=== PATIENT | male | born 1945 | race Two or more races ===

== ENCOUNTER 2018-06-17 10:32 | Inpatient (IN) | payer MEDICARE, OTHER ==
[~2018-06-17] VITALS: Ht 170.2 cm; Wt 72.6 kg
[2018-06-17] MEDS ORDERED: IBUPROFEN 600MG TABLET PO STA (11:23)
[2018-06-17] MEDS ORDERED: SODIUM CHLORIDE 0.9% 1,000 ML IV ONE (11:23)
[2018-06-17] MEDS ORDERED: BACITRACIN ZINC OINT UDPKT TOP ONE (11:30)
[2018-06-17] MEDS ORDERED: LIDOCAINE HCL/PF 1% 10 MG/ML 5ML VIAL IJ ONE (11:30)
[2018-06-17] MEDS ORDERED: TETANUS, DIPHTHERIA, PERTUSSIS VAC/PF 0.5ML (>7YR OLD) IM ONE (11:30)
[2018-06-17 13:09] LABS: INR 1.1; PROTHROMBIN TIME 11.5 sec (9.1-11.1)
[2018-06-17 13:12] LABS: CHLORIDE 102 mEq/L (98-107)
[2018-06-17 13:20] LABS: BASOPHILS % 0.4 % (0.0-2.0); EOSINOPHILS % 2.4 % (0.0-5.0); HEMATOCRIT. 45.8 % (42.0-52.0); HEMOGLOBIN. 15.9 g/dL (14.0-18.0); LYMPHOCYTES % 15.5 % (20.0-50.0); MEAN CORPUSCULAR HEMOGLOBIN 30.1 pg (28.0-32.0); MEAN PLATELET VOLUME 7.7 fl (7.4-10.4); MONOCYTES % 5.4 % (2.0-8.0); NEUTROPHILS % 76.3 % (40.0-76.0); PLATELET 173 x1000/uL (130-400); RED BLOOD CELL COUNT 5.27 mill/uL (4.7-6.1)
[2018-06-17] MEDS ORDERED: CEPHALEXIN 250MG CAPSULE PO ONE (14:00)
[2018-06-17] MEDS ORDERED: ACETAMINOPHEN 325MG TABLET PO PRN ×2 (15:00→15:30)
[2018-06-17] MEDS ORDERED: ONDANSETRON HCL 4MG/2ML INJ IV PRN (15:30)
[2018-06-17] MEDS ORDERED: CLONIDINE 0.1MG TABLET PO PRN (15:30)
[2018-06-17 16:34] LABS: CREATINE KINASE MB FRACTION 2.8 ng/mL (0.5-3.6)
[2018-06-17 20:19] LABS: CLARITY URINE CLEAR (CLEAR); COLOR URINE YELLOW (YELLOW); KETONES URINE NEGATIVE (NEGATIVE); LEUKOCYTE ESTERASE URINE NEGATIVE (NEGATIVE); NITRITE URINE NEGATIVE (NEGATIVE); OCCULT BLOOD URINE NEGATIVE (NEGATIVE); PH URINE 8.5 (4.5-8.0); PROTEIN URINE NEGATIVE (NEGATIVE); SPECIFIC GRAVITY URINE 1.009 (1.005-1.030); UROBILINOGEN URINE 0.2 E.U./dL (0.2-1.0)
[2018-06-17 20:36] LABS: *AMPHETAMINES SCREEN URINE NEGATIVE (NEGATIVE); *BARBITURATES SCREEN URINE NEGATIVE (NEGATIVE); *BENZODIAZEPINES SCREEN URINE NEGATIVE (NEGATIVE); *COCAINE SCREEN URINE NEGATIVE (NEGATIVE); CANNABINOID URINE SCREEN NEGATIVE (NEGATIVE); METHADONE URINE SCREEN NEGATIVE (NEGATIVE); OPIATES URINE SCREEN NEGATIVE (NEGATIVE); PHENCYCLIDINE URINE SCREEN NEGATIVE (NEGATIVE)
[2018-06-17 23:30] VITALS: BP 162/85
[2018-06-17 23:45] VITALS: BP 162/85
[2018-06-18 04:00] VITALS: BP 140/77
[2018-06-18 07:36] LABS: CHLORIDE 105 mEq/L (98-107)
[2018-06-18 07:50] LABS: BASOPHILS % 0.3 % (0.0-2.0); EOSINOPHILS % 1.8 % (0.0-5.0); HEMATOCRIT. 45.9 % (42.0-52.0); HEMOGLOBIN. 15.6 g/dL (14.0-18.0); LYMPHOCYTES % 19.7 % (20.0-50.0); MEAN CORPUSCULAR HEMOGLOBIN 29.5 pg (28.0-32.0); MEAN CORPUSCULAR VOLUME 87.1 fL (80.0-94.0); MEAN PLATELET VOLUME 7.6 fl (7.4-10.4); NEUTROPHILS % 72.2 % (40.0-76.0); PLATELET 172 x1000/uL (130-400); RED BLOOD CELL COUNT 5.27 mill/uL (4.7-6.1); RED CELL DISTRIBUTION WIDTH 13.1 % (11.6-14.6)
[2018-06-18 07:55] LABS: CREATINE KINASE 248 IU/L (39-308); CREATINE KINASE MB FRACTION 3.1 ng/mL (0.5-3.6); HDL CHOLESTEROL 31 mg/dL (40-59); LDL CHOLESTEROL 82 mg/dL (5-100)
[2018-06-18] MEDS: LOSARTAN POTASSIUM 25 MG TABLET PO SCH ×2 (09:06→17:00)
[2018-06-18] MEDS: AMLODIPINE 5MG TABLET PO SCH ×2 (09:06→20:50)
[2018-06-18] MEDS: HYDROCODONE/ACETAMINOPHEN 5/325MG TABLET PO PRN ×3 (09:07→20:50)
[2018-06-18 11:36] VITALS: BP_SYST 130; BP_SYST 154; BP_DIAS 74; BP_DIAS 89
[2018-06-18 12:00] VITALS: BP 118/72
[2018-06-18 16:00] VITALS: BP 129/67
[2018-06-18 20:00] VITALS: BP 142/78
[2018-06-19] VITALS (7 sets, daily range): BP systolic 95–149; BP diastolic 53–92
[2018-06-19] MEDS: HYDROCODONE/ACETAMINOPHEN 5/325MG TABLET PO PRN ×3 (05:00→18:21)
[2018-06-19 06:55] LABS: BASOPHILS % 0.5 % (0.0-2.0); EOSINOPHILS % 2.9 % (0.0-5.0); HEMOGLOBIN. 16.5 g/dL (14.0-18.0); MEAN CORPUSCULAR VOLUME 87.3 fL (80.0-94.0); MEAN PLATELET VOLUME 8.1 fl (7.4-10.4); MONOCYTES % 6.9 % (2.0-8.0); NEUTROPHILS % 68.7 % (40.0-76.0); PLATELET 188 x1000/uL (130-400); RED CELL DISTRIBUTION WIDTH 13.2 % (11.6-14.6)
[2018-06-19 07:17] LABS: CHLORIDE 105 mEq/L (98-107)
[2018-06-19] MEDS: LOSARTAN POTASSIUM 25 MG TABLET PO SCH ×2 (08:28→18:20)
[2018-06-19] MEDS: AMLODIPINE 5MG TABLET PO SCH ×2 (08:29→21:35)
[2018-06-19] MEDS: METOPROLOL TARTRATE 25MG TABLET PO SCH ×2 (11:29→21:35)
[2018-06-19] MEDS ORDERED: MECLIZINE 25MG TABLET PO PRN (15:00)
[2018-06-20] VITALS: BP 134/75
[2018-06-20 04:00] VITALS: BP 138/78
[2018-06-20 08:00] VITALS: BP_SYST 121; BP_SYST 126; BP_DIAS 76; BP_DIAS 78
[2018-06-20] MEDS: LOSARTAN POTASSIUM 25 MG TABLET PO SCH ×2 (08:55→17:01)
[2018-06-20] MEDS: METOPROLOL TARTRATE 25MG TABLET PO SCH ×2 (08:56→20:19)
[2018-06-20] MEDS: AMLODIPINE 5MG TABLET PO SCH ×2 (08:57→20:18)
[2018-06-20 12:00] VITALS: BP 133/72
[2018-06-20 16:00] VITALS: BP 152/90
[2018-06-20 20:00] VITALS: BP 148/92
[2018-06-20] MEDS: HYDROCODONE/ACETAMINOPHEN 5/325MG TABLET PO PRN (20:48)
[2018-06-21] VITALS (7 sets, daily range): BP systolic 80–148; BP diastolic 48–91
[2018-06-21] MEDS: LOSARTAN POTASSIUM 25 MG TABLET PO SCH ×2 (08:45→16:46)
[2018-06-21] MEDS: AMLODIPINE 5MG TABLET PO SCH ×2 (08:45→20:29)
[2018-06-21] MEDS: METOPROLOL TARTRATE 25MG TABLET PO SCH ×2 (08:45→20:29)
[2018-06-21] MEDS: HYDROCODONE/ACETAMINOPHEN 5/325MG TABLET PO PRN ×2 (13:06→22:25)
[2018-06-21] MEDS: ENOXAPARIN 40MG/0.4ML SYR SUBCUT SCH (14:29)
[2018-06-21] MEDS: LACTULOSE 20G/30ML UDC PO SCH ×3 (14:30→20:23)
[2018-06-21] MEDS: DOCUSATE SODIUM 100MG CAPSULE PO SCH (16:50)
[2018-06-21] MEDS: POLYETHYLENE GLYCOL 3350 (17GM) 1 DOSE PACK PO SCH (20:29)
[2018-06-22 04:00] VITALS: BP_SYST 104; BP_SYST 117; BP_SYST 127; BP_DIAS 65; BP_DIAS 66; BP_DIAS 70
[2018-06-22 07:44] VITALS: BP 136/76
[2018-06-22 08:00] VITALS: BP 136/76
[2018-06-22] MEDS: DOCUSATE SODIUM 100MG CAPSULE PO SCH ×2 (08:22→17:03)
[2018-06-22] MEDS: AMLODIPINE 5MG TABLET PO SCH ×2 (08:23→20:34)
[2018-06-22] MEDS: METOPROLOL TARTRATE 25MG TABLET PO SCH ×2 (08:23→20:34)
[2018-06-22] MEDS: LOSARTAN POTASSIUM 25 MG TABLET PO SCH ×2 (08:23→17:00)
[2018-06-22] MEDS: ENOXAPARIN 40MG/0.4ML SYR SUBCUT SCH (08:24)
[2018-06-22 12:09] LABS: CHLORIDE 107 mEq/L (98-107)
[2018-06-22 12:15] VITALS: BP_SYST 124; BP_SYST 134; BP_DIAS 64
[2018-06-22] MEDS: HYDROCODONE/ACETAMINOPHEN 5/325MG TABLET PO PRN ×2 (13:24→21:39)
[2018-06-22 17:35] VITALS: BP 106/77
[2018-06-22 20:00] VITALS: BP 119/59
[2018-06-22] MEDS: POLYETHYLENE GLYCOL 3350 (17GM) 1 DOSE PACK PO SCH (20:31)
[2018-06-23] VITALS: BP 120/58
[2018-06-23 04:00] VITALS: BP 133/78
[2018-06-23 06:15] LABS: BASOPHILS % 0.8 % (0.0-2.0); EOSINOPHILS % 9.1 % (0.0-5.0); HEMATOCRIT. 47.5 % (42.0-52.0); HEMOGLOBIN. 16.5 g/dL (14.0-18.0); LYMPHOCYTES % 31.3 % (20.0-50.0); MEAN CORPUSCULAR HEMOGLOBIN 30.4 pg (28.0-32.0); MEAN CORPUSCULAR VOLUME 87.7 fL (80.0-94.0); MEAN PLATELET VOLUME 8.2 fl (7.4-10.4); MONOCYTES % 6.9 % (2.0-8.0); NEUTROPHILS % 51.9 % (40.0-76.0); PLATELET 222 x1000/uL (130-400); RED BLOOD CELL COUNT 5.42 mill/uL (4.7-6.1)
[2018-06-23] MEDS ORDERED: HYDROCODONE/ACETAMINOPHEN 5/325MG TABLET PO PRN ×2 (06:15→18:30)
[2018-06-23 06:41] LABS: CHLORIDE 108 mEq/L (98-107)
[2018-06-23 08:00] VITALS: BP 129/73
[2018-06-23] MEDS: DOCUSATE SODIUM 100MG CAPSULE PO SCH ×2 (09:47→16:38)
[2018-06-23] MEDS: CALCITONIN,SALMON, 3.7 ML NASAL SPRAY ONENSTRL SCH (09:47)
[2018-06-23] MEDS: CALCIUM CARBONATE/VITAMIN D3 500MG TABLET PO SCH (09:48)
[2018-06-23] MEDS: LOSARTAN POTASSIUM 25 MG TABLET PO SCH ×2 (09:48→16:55)
[2018-06-23] MEDS: AMLODIPINE 5MG TABLET PO SCH ×2 (09:48→20:04)
[2018-06-23] MEDS: METOPROLOL TARTRATE 25MG TABLET PO SCH ×2 (09:48→20:04)
[2018-06-23] MEDS: ENOXAPARIN 40MG/0.4ML SYR SUBCUT SCH (09:49)
[2018-06-23] MEDS ORDERED: POTASSIUM CHLORIDE 20MEQ TABLET SR PO SCH (11:30)
[2018-06-23 12:56] VITALS: BP 136/77
[2018-06-23] MEDS: LACTULOSE 20G/30ML UDC PO SCH ×4 (13:00→20:11)
[2018-06-23] MEDS ORDERED: LACTULOSE 20G/30ML UDC PO SCH (13:00)
[2018-06-23] MEDS ORDERED: SODIUM CHLORIDE 0.9% 500 ML IV NR (16:05)
[2018-06-23 16:39] VITALS: BP 111/73
[2018-06-23] MEDS ORDERED: LORAZEPAM 2MG/ML CPJ IV NR (17:30)
[2018-06-23 20:00] VITALS: BP_SYST 113; BP_SYST 144; BP_SYST 98; BP_DIAS 68; BP_DIAS 77; BP_DIAS 78
[2018-06-23] MEDS: MORPHINE SULFATE 4 MG/ML CPJ (NOT FOR IM USE) IV PRN (20:04)
[2018-06-23] MEDS: POLYETHYLENE GLYCOL 3350 (17GM) 1 DOSE PACK PO SCH (20:11)
[2018-06-24] VITALS (7 sets, daily range): BP systolic 102–127; BP diastolic 47–71
[2018-06-24] MEDS: MORPHINE SULFATE 4 MG/ML CPJ (NOT FOR IM USE) IV PRN ×2 (06:20→19:26)
[2018-06-24 07:26] LABS: BASOPHILS % 0.9 % (0.0-2.0); EOSINOPHILS % 6.5 % (0.0-5.0); HEMATOCRIT. 47.7 % (42.0-52.0); HEMOGLOBIN. 16.1 g/dL (14.0-18.0); LYMPHOCYTES % 35.1 % (20.0-50.0); MEAN CORPUSCULAR HEMOGLOBIN 29.7 pg (28.0-32.0); MEAN PLATELET VOLUME 8.2 fl (7.4-10.4); MONOCYTES % 6.5 % (2.0-8.0); PLATELET 231 x1000/uL (130-400); RED BLOOD CELL COUNT 5.42 mill/uL (4.7-6.1); RED CELL DISTRIBUTION WIDTH 13.2 % (11.6-14.6)
[2018-06-24 08:01] LABS: CHLORIDE 107 mEq/L (98-107)
[2018-06-24] MEDS: CALCITONIN,SALMON, 3.7 ML NASAL SPRAY ONENSTRL SCH (08:31)
[2018-06-24] MEDS: CALCIUM CARBONATE/VITAMIN D3 500MG TABLET PO SCH (08:32)
[2018-06-24] MEDS: AMLODIPINE 5MG TABLET PO SCH (08:32)
[2018-06-24] MEDS: DOCUSATE SODIUM 100MG CAPSULE PO SCH ×2 (08:32→17:00)
[2018-06-24] MEDS: LOSARTAN POTASSIUM 25 MG TABLET PO SCH ×2 (08:32→17:00)
[2018-06-24] MEDS: METOPROLOL TARTRATE 25MG TABLET PO SCH ×2 (08:32→21:45)
[2018-06-24] MEDS: ENOXAPARIN 40MG/0.4ML SYR SUBCUT SCH (08:33)
[2018-06-24] MEDS ORDERED: HYDROCODONE/APAP 7.5/325MG 1 TAB TABLET PO PRN (10:45)
[2018-06-24] MEDS: AMLODIPINE 2.5MG TABLET PO SCH (21:44)
[2018-06-24] MEDS: POLYETHYLENE GLYCOL 3350 (17GM) 1 DOSE PACK PO SCH (21:45)
[2018-06-25] VITALS: BP 124/83
[2018-06-25 04:00] VITALS: BP 108/75
[2018-06-25 07:58] LABS: CHLORIDE 106 mEq/L (98-107)
[2018-06-25 08:12] LABS: BASOPHILS % 0.7 % (0.0-2.0); EOSINOPHILS % 8.2 % (0.0-5.0); HEMATOCRIT. 48.1 % (42.0-52.0); HEMOGLOBIN. 16.4 g/dL (14.0-18.0); LYMPHOCYTES % 30.5 % (20.0-50.0); MEAN CORPUSCULAR HEMOGLOBIN 29.9 pg (28.0-32.0); MEAN CORPUSCULAR VOLUME 87.7 fL (80.0-94.0); MEAN PLATELET VOLUME 8.5 fl (7.4-10.4); MONOCYTES % 7.4 % (2.0-8.0); NEUTROPHILS % 53.2 % (40.0-76.0); PLATELET 237 x1000/uL (130-400); RED BLOOD CELL COUNT 5.48 mill/uL (4.7-6.1); RED CELL DISTRIBUTION WIDTH 13.2 % (11.6-14.6)
[2018-06-25] MEDS: CALCITONIN,SALMON, 3.7 ML NASAL SPRAY ONENSTRL SCH (09:48)
[2018-06-25] MEDS: CALCIUM CARBONATE/VITAMIN D3 500MG TABLET PO SCH (09:49)
[2018-06-25] MEDS: LOSARTAN POTASSIUM 25 MG TABLET PO SCH (09:49)
[2018-06-25] MEDS: METOPROLOL TARTRATE 25MG TABLET PO SCH (09:50)
[2018-06-25] MEDS: DOCUSATE SODIUM 100MG CAPSULE PO SCH (09:50)
[2018-06-25] MEDS: ENOXAPARIN 40MG/0.4ML SYR SUBCUT SCH (09:51)
[2018-06-25] MEDS: AMLODIPINE 2.5MG TABLET PO SCH (09:56)
[2018-06-25 12:00] VITALS: BP 143/53
[2018-06-25 16:00] VITALS: BP 111/74
[2018-06-25 16:39] VITALS: BP 143/53
[2018-06-25] MEDS ORDERED: LORAZEPAM 0.5MG TABLET PO PRN (21:00)
== END 2018-06-25 17:05 | DRG 184 ==
LOC: ER 10:32 → 8WST 15:01 → EDBEDREQTM 15:05 → EDBEDREQ 15:05 → ENRESERV 22:05 → EDBEDREQ 23:17
PROVIDERS: ADMIT Internal Medicine; ATTEND Internal Medicine
PROC: 2W3HX1Z Immobilization of Left Thumb using Splint (ICD-10-PCS; principal; 2018-06-20)
DX: S22.42XA Multiple fractures of ribs, left side, initial encounter for closed fracture (principal); S22.039A Unspecified fracture of third thoracic vertebra, initial encounter for closed fracture; S22.059A Unspecified fracture of T5-T6 vertebra, initial encounter for closed fracture; J98.11 Atelectasis; M48.54XA Collapsed vertebra, not elsewhere classified, thoracic region, initial encounter for fracture; G90.8 Other disorders of autonomic nervous system; M47.812 Spondylosis without myelopathy or radiculopathy, cervical region; I10 Essential (primary) hypertension; M48.02 Spinal stenosis, cervical region; S09.90XA Unspecified injury of head, initial encounter; W18.30XA Fall on same level, unspecified, initial encounter; S62.522A Displaced fracture of distal phalanx of left thumb, initial encounter for closed fracture; I49.3 Ventricular premature depolarization; I95.1 Orthostatic hypotension; M46.90 Unspecified inflammatory spondylopathy, site unspecified; R79.1 Abnormal coagulation profile; Y93.01 Activity, walking, marching and hiking; W18.39XA Other fall on same level, initial encounter; R73.9 Hyperglycemia, unspecified; R26.9 Unspecified abnormalities of gait and mobility; M50.30 Other cervical disc degeneration, unspecified cervical region; Z82.49 Family history of ischemic heart disease and other diseases of the circulatory system; Y92.488 Other paved roadways as the place of occurrence of the external cause; Y99.8 Other external cause status
CPT/HCPCS: 12002; 36415; 70551; 71045; 72128; 72131; 72146; 73140; 74018; 78582; 80048; 80061; 80305; 82550; 82553; 82962; 83605; 83735; 83880; 84443; 84484; 85379; 90471; 90715; 93005; 93306; 93880; 93970; 96360; 97116; 97162; 97166; 97530; 97535; 99285; A9558; C1893; J1650; J2270; J3490; J7030; J7040; J8597

== ENCOUNTER 2018-06-25 17:10 | Inpatient (IN) | payer MEDICARE, OTHER ==
[~2018-06-25] VITALS: Ht 144.8 cm; Wt 72.6 kg
[2018-06-25] MEDS ORDERED: ONDANSETRON 4MG ODT PO PRN (18:45)
[2018-06-25] MEDS ORDERED: ACETAMINOPHEN 325MG TABLET PO PRN (18:45)
[2018-06-25] MEDS ORDERED: MECLIZINE 25MG TABLET PO PRN (18:45)
[2018-06-25] MEDS ORDERED: HYDROCODONE/APAP 7.5/325MG 1 TAB TABLET PO PRN (18:45)
[2018-06-25] MEDS ORDERED: CLONIDINE 0.1MG TABLET PO PRN (18:45)
[2018-06-25] MEDS ORDERED: MORPHINE SULFATE 10MG/5ML ORAL SOLN UDC PO PRN (18:45)
[2018-06-25 19:16] VITALS: BP 128/77
[2018-06-25 20:00] VITALS: BP 133/76
[2018-06-25] MEDS: METOPROLOL TARTRATE 25MG TABLET PO SCH (21:36)
[2018-06-25] MEDS: POLYETHYLENE GLYCOL 3350 (17GM) 1 DOSE PACK PO SCH (21:37)
[2018-06-25 22:00] VITALS: BP 130/74
[2018-06-26 06:47] LABS: BASOPHILS % 0.8 % (0.0-2.0); EOSINOPHILS % 8.9 % (0.0-5.0); HEMATOCRIT. 46.7 % (42.0-52.0); MEAN CORPUSCULAR HEMOGLOBIN 29.9 pg (28.0-32.0); MEAN CORPUSCULAR VOLUME 87.5 fL (80.0-94.0); MEAN PLATELET VOLUME 8.6 fl (7.4-10.4); MONOCYTES % 6.9 % (2.0-8.0); NEUTROPHILS % 46.4 % (40.0-76.0); PLATELET 251 x1000/uL (130-400); RED BLOOD CELL COUNT 5.33 mill/uL (4.7-6.1); RED CELL DISTRIBUTION WIDTH 12.9 % (11.6-14.6)
[2018-06-26 06:58] LABS: CHLORIDE 108 mEq/L (98-107)
[2018-06-26 08:00] VITALS: BP 115/73
[2018-06-26] MEDS ORDERED: HYDROCODONE/APAP 7.5/325MG 1 TAB TABLET PO PRN (08:30)
[2018-06-26] MEDS: CALCIUM CARBONATE/VITAMIN D3 500MG TABLET PO SCH (08:33)
[2018-06-26] MEDS: METOPROLOL TARTRATE 25MG TABLET PO SCH ×2 (08:34→21:25)
[2018-06-26] MEDS: DOCUSATE SODIUM 100MG CAPSULE PO SCH ×2 (08:34→17:19)
[2018-06-26] MEDS: LOSARTAN POTASSIUM 25 MG TABLET PO SCH ×2 (08:34→20:19)
[2018-06-26] MEDS: ENOXAPARIN 40MG/0.4ML SYR SUBCUT SCH (08:35)
[2018-06-26] MEDS: CALCITONIN,SALMON, 3.7 ML NASAL SPRAY ONENSTRL SCH (08:40)
[2018-06-26] MEDS: AMLODIPINE 5MG TABLET PO SCH ×2 (09:00→21:24)
[2018-06-26 13:08] LABS: HEPATITIS B SURFACE ANTIGEN NEGATIVE
[2018-06-26 13:37] LABS: HEPATITIS A AB IGM NEGATIVE (NEGATIVE)
[2018-06-26 20:00] VITALS: BP 144/69
[2018-06-26] MEDS: POLYETHYLENE GLYCOL 3350 (17GM) 1 DOSE PACK PO SCH (21:23)
[2018-06-26] MEDS: OXYCODONE HCL 5MG TABLET PO PRN (21:24)
[2018-06-27 06:46] LABS: BASOPHILS % 0.8 % (0.0-2.0); EOSINOPHILS % 8.2 % (0.0-5.0); HEMATOCRIT. 48.1 % (42.0-52.0); HEMOGLOBIN. 16.5 g/dL (14.0-18.0); LYMPHOCYTES % 37.7 % (20.0-50.0); MEAN CORPUSCULAR VOLUME 87.6 fL (80.0-94.0); MEAN PLATELET VOLUME 8.7 fl (7.4-10.4); MONOCYTES % 7.1 % (2.0-8.0); NEUTROPHILS % 46.2 % (40.0-76.0); PLATELET 263 x1000/uL (130-400); RED BLOOD CELL COUNT 5.49 mill/uL (4.7-6.1); RED CELL DISTRIBUTION WIDTH 13.2 % (11.6-14.6)
[2018-06-27] MEDS: OXYCODONE HCL 5MG TABLET PO PRN (06:53)
[2018-06-27 06:55] VITALS: BP_SYST 119; BP_SYST 126; BP_SYST 131; BP_DIAS 78; BP_DIAS 81
[2018-06-27 07:14] LABS: FERRITIN 382 ng/mL (22-322)
[2018-06-27 07:15] LABS: PROSTRATE SPECIFIC AG TOTAL 0.81 ng/mL (0.0-4.0)
[2018-06-27 07:19] LABS: CHLORIDE 105 mEq/L (98-107)
[2018-06-27 08:05] LABS: PHOSPHORUS 2.8 mg/dL (2.5-4.9)
[2018-06-27 08:12] VITALS: BP 120/72
[2018-06-27 08:14] VITALS: BP 91/63
[2018-06-27 08:15] VITALS: BP 100/67
[2018-06-27] MEDS: LOSARTAN POTASSIUM 25 MG TABLET PO SCH ×2 (08:59→21:29)
[2018-06-27] MEDS: ENOXAPARIN 40MG/0.4ML SYR SUBCUT SCH (08:59)
[2018-06-27] MEDS: AMLODIPINE 5MG TABLET PO SCH ×2 (08:59→21:29)
[2018-06-27] MEDS: CALCIUM CARBONATE/VITAMIN D3 500MG TABLET PO SCH (08:59)
[2018-06-27] MEDS: DOCUSATE SODIUM 100MG CAPSULE PO SCH ×2 (08:59→17:36)
[2018-06-27] MEDS: METOPROLOL TARTRATE 25MG TABLET PO SCH ×2 (08:59→21:29)
[2018-06-27] MEDS: CALCITONIN,SALMON, 3.7 ML NASAL SPRAY ONENSTRL SCH (09:12)
[2018-06-27] MEDS: MECLIZINE 25MG TABLET PO SCH ×2 (14:44→21:29)
[2018-06-27] MEDS ORDERED: LACTULOSE 20G/30ML UDC PO PRN (15:00)
[2018-06-27] MEDS ORDERED: NA PHOS,M-B/NA PHOS,DI-BA ENEMA 118ML PR PRN (15:00)
[2018-06-27] MEDS: LIDOCAINE 5% PATCH TOP SCH (16:20)
[2018-06-27 20:00] VITALS: BP 116/74
[2018-06-27] MEDS: POLYETHYLENE GLYCOL 3350 (17GM) 1 DOSE PACK PO SCH (21:00)
[2018-06-28] MEDS: MECLIZINE 25MG TABLET PO SCH ×3 (06:31→20:57)
[2018-06-28] MEDS: OXYCODONE HCL 5MG TABLET PO PRN ×2 (06:32→20:54)
[2018-06-28 07:30] VITALS: BP 112/70
[2018-06-28] MEDS: DOCUSATE SODIUM 100MG CAPSULE PO SCH ×2 (08:59→17:06)
[2018-06-28] MEDS: ENOXAPARIN 40MG/0.4ML SYR SUBCUT SCH (08:59)
[2018-06-28] MEDS: LOSARTAN POTASSIUM 25 MG TABLET PO SCH ×2 (09:00→20:55)
[2018-06-28] MEDS: AMLODIPINE 5MG TABLET PO SCH ×2 (09:00→20:55)
[2018-06-28] MEDS: CALCIUM CARBONATE/VITAMIN D3 500MG TABLET PO SCH (09:01)
[2018-06-28] MEDS: METOPROLOL TARTRATE 25MG TABLET PO SCH ×2 (09:03→20:55)
[2018-06-28] MEDS: CALCITONIN,SALMON, 3.7 ML NASAL SPRAY ONENSTRL SCH (09:05)
[2018-06-28] MEDS: LIDOCAINE 5% PATCH TOP SCH (09:06)
[2018-06-28 10:30] VITALS: BP 104/60
[2018-06-28 11:12] LABS: BASOPHILS % 1.1 % (0.0-2.0); HEMATOCRIT. 48.7 % (42.0-52.0); HEMOGLOBIN. 16.5 g/dL (14.0-18.0); LYMPHOCYTES % 25.4 % (20.0-50.0); MEAN CORPUSCULAR HEMOGLOBIN 29.7 pg (28.0-32.0); MEAN CORPUSCULAR VOLUME 87.9 fL (80.0-94.0); MEAN PLATELET VOLUME 8.4 fl (7.4-10.4); MONOCYTES % 9.3 % (2.0-8.0); NEUTROPHILS % 56.2 % (40.0-76.0); PLATELET 297 x1000/uL (130-400); RED BLOOD CELL COUNT 5.54 mill/uL (4.7-6.1); RED CELL DISTRIBUTION WIDTH 12.8 % (11.6-14.6)
[2018-06-28 20:00] VITALS: BP 113/68
[2018-06-28] MEDS: POLYETHYLENE GLYCOL 3350 (17GM) 1 DOSE PACK PO SCH (20:55)
[2018-06-28] MEDS ORDERED: ZOLPIDEM TARTRATE 5MG TABLET PO PRN (21:00)
[2018-06-29] MEDS: MECLIZINE 25MG TABLET PO SCH ×3 (06:15→21:20)
[2018-06-29 08:00] VITALS: BP 129/87
[2018-06-29] MEDS: ENOXAPARIN 40MG/0.4ML SYR SUBCUT SCH (08:18)
[2018-06-29] MEDS: DOCUSATE SODIUM 100MG CAPSULE PO SCH ×2 (08:18→17:23)
[2018-06-29] MEDS: CALCIUM CARBONATE/VITAMIN D3 500MG TABLET PO SCH (08:18)
[2018-06-29] MEDS: LOSARTAN POTASSIUM 25 MG TABLET PO SCH ×2 (08:18→21:00)
[2018-06-29] MEDS: LIDOCAINE 5% PATCH TOP SCH (08:19)
[2018-06-29] MEDS: AMLODIPINE 5MG TABLET PO SCH ×2 (09:00→21:00)
[2018-06-29] MEDS: METOPROLOL TARTRATE 25MG TABLET PO SCH ×2 (09:00→21:00)
[2018-06-29] MEDS: CALCITONIN,SALMON, 3.7 ML NASAL SPRAY ONENSTRL SCH (09:55)
[2018-06-29] MEDS: OXYCODONE HCL 5MG TABLET PO PRN (12:35)
[2018-06-29 20:00] VITALS: BP 118/64
[2018-06-29] MEDS: POLYETHYLENE GLYCOL 3350 (17GM) 1 DOSE PACK PO SCH (21:21)
[2018-06-30] MEDS: MECLIZINE 25MG TABLET PO SCH ×3 (06:16→21:08)
[2018-06-30] MEDS: OXYCODONE HCL 5MG TABLET PO PRN ×2 (06:39→21:11)
[2018-06-30 07:13] LABS: BASOPHILS % 0.8 % (0.0-2.0); EOSINOPHILS % 7.9 % (0.0-5.0); HEMATOCRIT. 48.1 % (42.0-52.0); HEMOGLOBIN. 16.5 g/dL (14.0-18.0); LYMPHOCYTES % 35.8 % (20.0-50.0); MEAN CORPUSCULAR HEMOGLOBIN 30.2 pg (28.0-32.0); MEAN CORPUSCULAR VOLUME 87.9 fL (80.0-94.0); MEAN PLATELET VOLUME 8.4 fl (7.4-10.4); MONOCYTES % 6.3 % (2.0-8.0); NEUTROPHILS % 49.2 % (40.0-76.0); PLATELET 299 x1000/uL (130-400); RED BLOOD CELL COUNT 5.47 mill/uL (4.7-6.1); RED CELL DISTRIBUTION WIDTH 13.3 % (11.6-14.6)
[2018-06-30 07:32] LABS: CHLORIDE 104 mEq/L (98-107)
[2018-06-30 08:00] VITALS: BP 131/72
[2018-06-30] MEDS: ENOXAPARIN 40MG/0.4ML SYR SUBCUT SCH (08:19)
[2018-06-30] MEDS: CALCITONIN,SALMON, 3.7 ML NASAL SPRAY ONENSTRL SCH (08:22)
[2018-06-30] MEDS: LIDOCAINE 5% PATCH TOP SCH (08:25)
[2018-06-30] MEDS: AMLODIPINE 5MG TABLET PO SCH ×2 (08:26→21:00)
[2018-06-30] MEDS: CALCIUM CARBONATE/VITAMIN D3 500MG TABLET PO SCH (08:26)
[2018-06-30] MEDS: METOPROLOL TARTRATE 25MG TABLET PO SCH ×2 (08:27→21:00)
[2018-06-30] MEDS: DOCUSATE SODIUM 100MG CAPSULE PO SCH ×2 (08:27→17:21)
[2018-06-30] MEDS: LOSARTAN POTASSIUM 25 MG TABLET PO SCH ×2 (09:00→21:00)
[2018-06-30 20:00] VITALS: BP_SYST 110; BP_SYST 125; BP_DIAS 69; BP_DIAS 70
[2018-06-30] MEDS: POLYETHYLENE GLYCOL 3350 (17GM) 1 DOSE PACK PO SCH (21:00)
[2018-06-30 22:08] LABS: VITAMIN B12 SERUM 420 pg/mL (211-911)
[2018-06-30 22:14] LABS: FOLIC ACID (FOLATE) SERUM > 20.00 ng/mL (>5.38)
[2018-07-01] MEDS: OXYCODONE HCL 5MG TABLET PO PRN ×2 (06:07→12:23)
[2018-07-01] MEDS: MECLIZINE 25MG TABLET PO SCH ×3 (06:08→20:59)
[2018-07-01 08:10] VITALS: BP 122/73
[2018-07-01] MEDS: CALCIUM CARBONATE/VITAMIN D3 500MG TABLET PO SCH (09:29)
[2018-07-01] MEDS: METOPROLOL TARTRATE 25MG TABLET PO SCH ×2 (09:29→20:58)
[2018-07-01] MEDS: DOCUSATE SODIUM 100MG CAPSULE PO SCH ×2 (09:29→18:02)
[2018-07-01] MEDS: AMLODIPINE 5MG TABLET PO SCH ×2 (09:29→20:59)
[2018-07-01] MEDS: LOSARTAN POTASSIUM 25 MG TABLET PO SCH ×2 (09:29→20:58)
[2018-07-01] MEDS: ENOXAPARIN 40MG/0.4ML SYR SUBCUT SCH (09:30)
[2018-07-01] MEDS: LIDOCAINE 5% PATCH TOP SCH (09:31)
[2018-07-01] MEDS: CALCITONIN,SALMON, 3.7 ML NASAL SPRAY ONENSTRL SCH (09:31)
[2018-07-01] MEDS ORDERED: TRAMADOL 50MG TABLET PO PRN (12:45)
[2018-07-01] MEDS: OXYCODONE HCL 5MG TABLET PO SCH ×2 (13:12→18:03)
[2018-07-01 20:00] VITALS: BP 104/56
[2018-07-01] MEDS: POLYETHYLENE GLYCOL 3350 (17GM) 1 DOSE PACK PO SCH (20:59)
[2018-07-01] MEDS ORDERED: OXYCODONE HCL 5MG TABLET PO PRN (21:45)
[2018-07-02] MEDS: MECLIZINE 25MG TABLET PO SCH ×3 (06:00→21:31)
[2018-07-02] MEDS: CYANOCOBALAMIN 1000MCG/ML VIAL IM SCH (08:17)
[2018-07-02] MEDS: CALCIUM CARBONATE/VITAMIN D3 500MG TABLET PO SCH (08:18)
[2018-07-02] MEDS: DOCUSATE SODIUM 100MG CAPSULE PO SCH ×2 (08:18→17:16)
[2018-07-02] MEDS: ENOXAPARIN 40MG/0.4ML SYR SUBCUT SCH (08:18)
[2018-07-02] MEDS: LIDOCAINE 5% PATCH TOP SCH (08:20)
[2018-07-02] MEDS: OXYCODONE HCL 5MG TABLET PO SCH ×3 (08:20→17:18)
[2018-07-02] MEDS: METOPROLOL TARTRATE 25MG TABLET PO SCH ×2 (08:21→21:00)
[2018-07-02 08:27] VITALS: BP 121/82
[2018-07-02 08:42] LABS: BASOPHILS % 0.9 % (0.0-2.0); HEMATOCRIT. 46.2 % (42.0-52.0); HEMOGLOBIN. 15.5 g/dL (14.0-18.0); LYMPHOCYTES % 30.1 % (20.0-50.0); MEAN CORPUSCULAR HEMOGLOBIN 29.6 pg (28.0-32.0); MEAN CORPUSCULAR VOLUME 87.9 fL (80.0-94.0); MONOCYTES % 6.1 % (2.0-8.0); NEUTROPHILS % 53.9 % (40.0-76.0); PLATELET 284 x1000/uL (130-400); RED BLOOD CELL COUNT 5.25 mill/uL (4.7-6.1); RED CELL DISTRIBUTION WIDTH 12.9 % (11.6-14.6)
[2018-07-02 09:50] VITALS: BP 105/58
[2018-07-02] MEDS: LOSARTAN POTASSIUM 25 MG TABLET PO SCH ×2 (09:50→21:30)
[2018-07-02] MEDS: AMLODIPINE 5MG TABLET PO SCH ×2 (09:50→21:00)
[2018-07-02] MEDS: CALCITONIN,SALMON, 3.7 ML NASAL SPRAY ONENSTRL SCH (10:06)
[2018-07-02 12:10] VITALS: BP 126/67
[2018-07-02 14:39] LABS: CHLORIDE 107 mEq/L (98-107)
[2018-07-02 14:46] LABS: PHOSPHORUS 3.2 mg/dL (2.5-4.9)
[2018-07-02 17:15] VITALS: BP 104/67
[2018-07-02 20:00] VITALS: BP 120/60
[2018-07-02] MEDS: POLYETHYLENE GLYCOL 3350 (17GM) 1 DOSE PACK PO SCH (21:00)
[2018-07-03] MEDS: MECLIZINE 25MG TABLET PO SCH ×3 (06:29→21:35)
[2018-07-03 08:00] VITALS: BP 130/77
[2018-07-03] MEDS: OXYCODONE HCL 5MG TABLET PO SCH ×3 (08:17→17:35)
[2018-07-03] MEDS: DOCUSATE SODIUM 100MG CAPSULE PO SCH ×2 (08:17→17:36)
[2018-07-03] MEDS: CALCIUM CARBONATE/VITAMIN D3 500MG TABLET PO SCH (08:17)
[2018-07-03] MEDS: CYANOCOBALAMIN 1000MCG/ML VIAL IM SCH (08:17)
[2018-07-03] MEDS: LIDOCAINE 5% PATCH TOP SCH (08:18)
[2018-07-03] MEDS: ENOXAPARIN 40MG/0.4ML SYR SUBCUT SCH (08:18)
[2018-07-03] MEDS: CALCITONIN,SALMON, 3.7 ML NASAL SPRAY ONENSTRL SCH (08:21)
[2018-07-03] MEDS: AMLODIPINE 5MG TABLET PO SCH ×2 (09:00→21:00)
[2018-07-03] MEDS: METOPROLOL TARTRATE 25MG TABLET PO SCH ×2 (09:00→21:37)
[2018-07-03] MEDS: LOSARTAN POTASSIUM 25 MG TABLET PO SCH ×2 (09:00→21:00)
[2018-07-03 20:00] VITALS: BP_SYST 101; BP_SYST 112; BP_SYST 121; BP_DIAS 74; BP_DIAS 77; BP_DIAS 82
[2018-07-03] MEDS: POLYETHYLENE GLYCOL 3350 (17GM) 1 DOSE PACK PO SCH (21:00)
[2018-07-04] MEDS: MECLIZINE 25MG TABLET PO SCH ×3 (06:18→21:42)
[2018-07-04] MEDS: TRAMADOL 50MG TABLET PO PRN (06:19)
[2018-07-04 07:14] LABS: BASOPHILS % 1.1 % (0.0-2.0); EOSINOPHILS % 6.8 % (0.0-5.0); HEMATOCRIT. 46.9 % (42.0-52.0); HEMOGLOBIN. 16.2 g/dL (14.0-18.0); LYMPHOCYTES % 41.5 % (20.0-50.0); MEAN CORPUSCULAR HEMOGLOBIN 30.1 pg (28.0-32.0); MEAN CORPUSCULAR VOLUME 87.4 fL (80.0-94.0); MEAN PLATELET VOLUME 8.6 fl (7.4-10.4); MONOCYTES % 6.7 % (2.0-8.0); NEUTROPHILS % 43.9 % (40.0-76.0); PLATELET 327 x1000/uL (130-400); RED BLOOD CELL COUNT 5.36 mill/uL (4.7-6.1)
[2018-07-04 07:42] LABS: CHLORIDE 104 mEq/L (98-107)
[2018-07-04 08:00] VITALS: BP_SYST 111; BP_SYST 115; BP_SYST 127; BP_DIAS 65; BP_DIAS 67; BP_DIAS 79
[2018-07-04] MEDS: DOCUSATE SODIUM 100MG CAPSULE PO SCH ×2 (08:54→16:35)
[2018-07-04] MEDS: ENOXAPARIN 40MG/0.4ML SYR SUBCUT SCH (08:54)
[2018-07-04] MEDS: CALCIUM CARBONATE/VITAMIN D3 500MG TABLET PO SCH (08:55)
[2018-07-04] MEDS: CYANOCOBALAMIN 1000MCG/ML VIAL IM SCH (08:55)
[2018-07-04] MEDS: METOPROLOL TARTRATE 25MG TABLET PO SCH ×2 (08:56→20:20)
[2018-07-04] MEDS: OXYCODONE HCL 5MG TABLET PO SCH ×3 (08:56→16:35)
[2018-07-04] MEDS: LOSARTAN POTASSIUM 25 MG TABLET PO SCH ×3 (08:56→21:00)
[2018-07-04] MEDS: AMLODIPINE 5MG TABLET PO SCH ×2 (09:00→20:21)
[2018-07-04] MEDS: LIDOCAINE 5% PATCH TOP SCH (09:02)
[2018-07-04] MEDS: CALCITONIN,SALMON, 3.7 ML NASAL SPRAY ONENSTRL SCH (09:02)
[2018-07-04 10:32] VITALS: BP 107/67
[2018-07-04 19:10] LABS: 25-HYDROXY VITAMIN D3 26 ng/mL (.)
[2018-07-04 20:00] VITALS: BP_SYST 85; BP_SYST 89; BP_SYST 97; BP_DIAS 47; BP_DIAS 53; BP_DIAS 54
[2018-07-04] MEDS: ZOLPIDEM TARTRATE 5MG TABLET PO PRN (20:20)
[2018-07-04] MEDS: POLYETHYLENE GLYCOL 3350 (17GM) 1 DOSE PACK PO SCH (20:21)
[2018-07-05] MEDS: MECLIZINE 25MG TABLET PO SCH ×3 (05:36→21:02)
[2018-07-05 07:50] LABS: BASOPHILS % 0.9 % (0.0-2.0); HEMATOCRIT. 46.5 % (42.0-52.0); HEMOGLOBIN. 15.7 g/dL (14.0-18.0); MEAN CORPUSCULAR HEMOGLOBIN 29.7 pg (28.0-32.0); MEAN CORPUSCULAR VOLUME 87.9 fL (80.0-94.0); MEAN PLATELET VOLUME 9.1 fl (7.4-10.4); MONOCYTES % 7.4 % (2.0-8.0); NEUTROPHILS % 43.7 % (40.0-76.0); PLATELET 323 x1000/uL (130-400); RED BLOOD CELL COUNT 5.29 mill/uL (4.7-6.1); RED CELL DISTRIBUTION WIDTH 13.2 % (11.6-14.6)
[2018-07-05 08:00] VITALS: BP 120/70
[2018-07-05] MEDS: CALCITONIN,SALMON, 3.7 ML NASAL SPRAY ONENSTRL SCH (08:06)
[2018-07-05] MEDS: CALCIUM CARBONATE/VITAMIN D3 500MG TABLET PO SCH (08:06)
[2018-07-05] MEDS: DOCUSATE SODIUM 100MG CAPSULE PO SCH ×2 (08:06→17:43)
[2018-07-05] MEDS: OXYCODONE HCL 5MG TABLET PO SCH ×3 (08:07→17:44)
[2018-07-05] MEDS: LIDOCAINE 5% PATCH TOP SCH (08:08)
[2018-07-05] MEDS: ENOXAPARIN 40MG/0.4ML SYR SUBCUT SCH (08:08)
[2018-07-05] MEDS: LOSARTAN POTASSIUM 25 MG TABLET PO SCH ×2 (09:00→20:53)
[2018-07-05] MEDS: METOPROLOL TARTRATE 25MG TABLET PO SCH ×2 (09:00→20:54)
[2018-07-05 11:13] LABS: CHLORIDE 105 mEq/L (98-107)
[2018-07-05 20:00] VITALS: BP 125/66
[2018-07-05] MEDS: POLYETHYLENE GLYCOL 3350 (17GM) 1 DOSE PACK PO SCH (20:00)
[2018-07-05] MEDS: ZOLPIDEM TARTRATE 5MG TABLET PO PRN (20:01)
[2018-07-06] MEDS: TRAMADOL 50MG TABLET PO PRN (04:35)
[2018-07-06] MEDS: MECLIZINE 25MG TABLET PO SCH (05:38)
[2018-07-06 06:30] VITALS: BP 112/74
[2018-07-06 07:19] LABS: EOSINOPHILS % 8.1 % (0.0-5.0); HEMATOCRIT. 44.8 % (42.0-52.0); HEMOGLOBIN. 15.3 g/dL (14.0-18.0); MEAN CORPUSCULAR HEMOGLOBIN 29.8 pg (28.0-32.0); MEAN CORPUSCULAR VOLUME 87.2 fL (80.0-94.0); MEAN PLATELET VOLUME 8.7 fl (7.4-10.4); MONOCYTES % 7.1 % (2.0-8.0); NEUTROPHILS % 43.8 % (40.0-76.0); PLATELET 296 x1000/uL (130-400); RED BLOOD CELL COUNT 5.13 mill/uL (4.7-6.1); RED CELL DISTRIBUTION WIDTH 12.9 % (11.6-14.6)
[2018-07-06 07:28] LABS: CHLORIDE 105 mEq/L (98-107)
[2018-07-06 08:28] VITALS: BP 126/82
[2018-07-06] MEDS: LOSARTAN POTASSIUM 25 MG TABLET PO SCH (09:00)
[2018-07-06] MEDS: METOPROLOL TARTRATE 25MG TABLET PO SCH (09:00)
[2018-07-06] MEDS: DOCUSATE SODIUM 100MG CAPSULE PO SCH (10:05)
[2018-07-06] MEDS: ENOXAPARIN 40MG/0.4ML SYR SUBCUT SCH (10:06)
[2018-07-06] MEDS: LIDOCAINE 5% PATCH TOP SCH (10:06)
[2018-07-06] MEDS: CALCIUM CARBONATE/VITAMIN D3 500MG TABLET PO SCH (10:07)
[2018-07-06] MEDS: CALCITONIN,SALMON, 3.7 ML NASAL SPRAY ONENSTRL SCH (10:10)
[2018-07-06] MEDS: OXYCODONE HCL 5MG TABLET PO SCH (10:13)
[2018-07-06 12:18] VITALS: BP 123/70
[2018-07-06] MEDS ORDERED: MECL-109 PO (16:09)
[2018-07-06] MEDS ORDERED: DOCU100T PO (16:09)
[2018-07-06] MEDS ORDERED: LOSA25TA12 MT (16:09)
== END 2018-07-06 13:09 | disposition short-term general hospital (02) | DRG 552 ==
PROVIDERS: ADMIT Physical Medicine & Rehabilitation Spinal Cord Injury Medicine; ATTEND Internal Medicine
DX: S22.039A Unspecified fracture of third thoracic vertebra, initial encounter for closed fracture (principal); S22.059A Unspecified fracture of T5-T6 vertebra, initial encounter for closed fracture; S62.522A Displaced fracture of distal phalanx of left thumb, initial encounter for closed fracture; W18.39XA Other fall on same level, initial encounter; M48.061 Spinal stenosis, lumbar region without neurogenic claudication; M48.02 Spinal stenosis, cervical region; R26.9 Unspecified abnormalities of gait and mobility; R53.81 Other malaise; I10 Essential (primary) hypertension; I95.1 Orthostatic hypotension; M47.812 Spondylosis without myelopathy or radiculopathy, cervical region; S09.90XA Unspecified injury of head, initial encounter; R73.9 Hyperglycemia, unspecified; R74.0 Nonspecific elevation of levels of transaminase and lactic acid dehydrogenase [LDH]; F06.31 Mood disorder due to known physiological condition with depressive features; M85.80 Other specified disorders of bone density and structure, unspecified site; Y93.89 Activity, other specified; Y92.89 Other specified places as the place of occurrence of the external cause; Y99.8 Other external cause status; Z82.1 Family history of blindness and visual loss
CPT/HCPCS: 36415; 73030; 76700; 80048; 80076; 82248; 82306; 82607; 82728; 82746; 83735; 84100; 84134; 84153; 84443; 84630; 86705; 86709; 86803; 87015; 87045; 87340; 87427; 87449; 89055; 92523; 93005; 93970; 97110; 97112; 97116; 97163; 97167; 97530; 97535; G0515; J1650; J3420; J8597; G0103

== ENCOUNTER 2018-07-06 13:37 | Inpatient (IN) | payer MEDICARE, OTHER ==
[~2018-07-06] VITALS: Ht 157.5 cm; Wt 74.8 kg
[2018-07-06 13:15] VITALS: BP 133/83
[2018-07-06 16:00] VITALS: BP 111/69
[2018-07-06] MEDS ORDERED: LOSA25TA12 MT (16:09)
[2018-07-06] MEDS ORDERED: MECL-109 PO (16:09)
[2018-07-06] MEDS ORDERED: DOCU100T PO (16:09)
[2018-07-06] MEDS ORDERED: GUAIFENESIN 200MG/10ML SUGAR FREE UDC PO PRN (16:15)
[2018-07-06] MEDS ORDERED: MAGNESIUM/ALUMINUM HYDROXIDE/SIMETHICONE 30ML UDC PO PRN (16:15)
[2018-07-06] MEDS ORDERED: ONDANSETRON HCL 4MG/2ML INJ IV PRN (16:15)
[2018-07-06] MEDS ORDERED: CLONIDINE 0.1MG TABLET PO PRN (16:15)
[2018-07-06] MEDS ORDERED: ACETAMINOPHEN 325MG TABLET PO PRN (16:15)
[2018-07-06] MEDS ORDERED: DOCUSATE SODIUM 100MG CAPSULE PO PRN (16:15)
[2018-07-06] MEDS ORDERED: OXYCODONE HCL 5MG TABLET PO PRN (16:30)
[2018-07-06] MEDS ORDERED: TRAMADOL 50MG TABLET PO PRN (16:30)
[2018-07-06] MEDS ORDERED: MECLIZINE 25MG TABLET PO PRN (16:30)
[2018-07-06] MEDS: DOCUSATE SODIUM 100MG CAPSULE PO SCH (18:46)
[2018-07-06] MEDS: SODIUM CHLORIDE 0.9% 1,000 ML IV SCH (18:46)
[2018-07-06 19:28] LABS: CREATINE KINASE 35 IU/L (39-308)
[2018-07-06 20:00] VITALS: BP 128/74
[2018-07-06] MEDS: CALCIUM CARBONATE/VITAMIN D3 500MG TABLET PO SCH (20:00)
[2018-07-06] MEDS: METOPROLOL TARTRATE 25MG TABLET PO SCH (21:00)
[2018-07-06] MEDS ORDERED: ZOLPIDEM TARTRATE 5MG TABLET PO PRN (21:00)
[2018-07-06] MEDS: IPRATROPIUM/ALBUTEROL 0.5-3(2.5)MG/3ML NEB INH PRN (23:13)
[2018-07-07] VITALS: BP 130/76
[2018-07-07 04:00] VITALS: BP 131/62
[2018-07-07] MEDS: IPRATROPIUM/ALBUTEROL 0.5-3(2.5)MG/3ML NEB INH PRN ×2 (05:16→08:50)
[2018-07-07 05:50] LABS: BASOPHILS % 1.2 % (0.0-2.0); EOSINOPHILS % 7.8 % (0.0-5.0); HEMATOCRIT. 45.1 % (42.0-52.0); HEMOGLOBIN. 15.6 g/dL (14.0-18.0); LYMPHOCYTES % 40.3 % (20.0-50.0); MEAN CORPUSCULAR HEMOGLOBIN 30.3 pg (28.0-32.0); MEAN CORPUSCULAR VOLUME 87.6 fL (80.0-94.0); MEAN PLATELET VOLUME 9.2 fl (7.4-10.4); MONOCYTES % 6.9 % (2.0-8.0); NEUTROPHILS % 43.8 % (40.0-76.0); PLATELET 266 x1000/uL (130-400); RED BLOOD CELL COUNT 5.15 mill/uL (4.7-6.1); RED CELL DISTRIBUTION WIDTH 13.1 % (11.6-14.6)
[2018-07-07 06:35] LABS: CHLORIDE 107 mEq/L (98-107)
[2018-07-07 06:55] LABS: LDL CHOLESTEROL 98 mg/dL (5-100)
[2018-07-07 06:57] LABS: CREATINE KINASE 36 IU/L (39-308)
[2018-07-07 06:58] LABS: HDL CHOLESTEROL 25 mg/dL (40-59); T4 FREE 1.22 ng/dL (0.76-1.46)
[2018-07-07] MEDS: SODIUM CHLORIDE 0.9% 1,000 ML IV SCH ×2 (07:17→20:41)
[2018-07-07 07:23] LABS: VITAMIN B12 SERUM 910 pg/mL (211-911)
[2018-07-07] MEDS: CALCIUM CARBONATE/VITAMIN D3 500MG TABLET PO SCH ×2 (07:54→17:46)
[2018-07-07] MEDS: METOPROLOL TARTRATE 25MG TABLET PO SCH ×2 (07:55→20:38)
[2018-07-07] MEDS: DOCUSATE SODIUM 100MG CAPSULE PO SCH ×2 (07:55→17:46)
[2018-07-07] MEDS: LOSARTAN POTASSIUM 50 MG TABLET PO SCH (07:55)
[2018-07-07] MEDS: POLYETHYLENE GLYCOL 3350 (17GM) 1 DOSE PACK PO SCH (07:55)
[2018-07-07 08:00] VITALS: BP 136/63
[2018-07-07] MEDS: NA PHOS,M-B/NA PHOS,DI-BA ENEMA 118ML PR SCH (09:00)
[2018-07-07] MEDS ORDERED: MECLIZINE 25MG TABLET PO PRN (10:30)
[2018-07-07 12:00] VITALS: BP 125/83
[2018-07-07 16:00] VITALS: BP 164/56
[2018-07-07 20:00] VITALS: BP 133/67
[2018-07-08] VITALS: BP 130/69
[2018-07-08 04:00] VITALS: BP 132/66
[2018-07-08 08:00] VITALS: BP 124/73
[2018-07-08 08:18] LABS: BASOPHILS % 0.7 % (0.0-2.0); EOSINOPHILS % 8.9 % (0.0-5.0); HEMATOCRIT. 44.5 % (42.0-52.0); HEMOGLOBIN. 15.3 g/dL (14.0-18.0); LYMPHOCYTES % 32.6 % (20.0-50.0); MEAN PLATELET VOLUME 9.2 fl (7.4-10.4); MONOCYTES % 7.2 % (2.0-8.0); NEUTROPHILS % 50.6 % (40.0-76.0); PLATELET 252 x1000/uL (130-400); RED BLOOD CELL COUNT 5.11 mill/uL (4.7-6.1); RED CELL DISTRIBUTION WIDTH 12.9 % (11.6-14.6)
[2018-07-08 08:43] LABS: CHLORIDE 105 mEq/L (98-107)
[2018-07-08 08:59] LABS: CREATINE KINASE MB FRACTION 1.3 ng/mL (0.5-3.6)
[2018-07-08 09:00] LABS: CREATINE KINASE 38 IU/L (39-308)
[2018-07-08] MEDS: NA PHOS,M-B/NA PHOS,DI-BA ENEMA 118ML PR SCH (09:00)
[2018-07-08 09:02] LABS: LDL CHOLESTEROL 99 mg/dL (5-100)
[2018-07-08 09:03] LABS: HDL CHOLESTEROL 27 mg/dL (40-59)
[2018-07-08] MEDS: SODIUM CHLORIDE 0.9% 1,000 ML IV SCH ×2 (10:00→23:20)
[2018-07-08] MEDS: DOCUSATE SODIUM 100MG CAPSULE PO SCH ×2 (10:34→17:39)
[2018-07-08] MEDS: CALCIUM CARBONATE/VITAMIN D3 500MG TABLET PO SCH ×2 (10:34→17:39)
[2018-07-08] MEDS: LOSARTAN POTASSIUM 50 MG TABLET PO SCH (10:35)
[2018-07-08] MEDS: POLYETHYLENE GLYCOL 3350 (17GM) 1 DOSE PACK PO SCH (10:36)
[2018-07-08] MEDS: METOPROLOL TARTRATE 25MG TABLET PO SCH ×2 (10:36→21:12)
[2018-07-08 12:00] VITALS: BP 160/73
[2018-07-08 16:00] VITALS: BP 172/60
[2018-07-08 20:00] VITALS: BP 143/77
[2018-07-08] MEDS: HYDROCODONE/ACETAMINOPHEN 5/325MG TABLET PO PRN (22:09)
[2018-07-09] VITALS (8 sets, daily range): BP systolic 97–130; BP diastolic 56–84
[2018-07-09] MEDS: CALCIUM CARBONATE/VITAMIN D3 500MG TABLET PO SCH ×2 (08:26→18:42)
[2018-07-09] MEDS: METOPROLOL TARTRATE 25MG TABLET PO SCH ×2 (08:26→21:00)
[2018-07-09] MEDS: LOSARTAN POTASSIUM 50 MG TABLET PO SCH (08:26)
[2018-07-09] MEDS: DOCUSATE SODIUM 100MG CAPSULE PO SCH ×2 (08:26→18:42)
[2018-07-09] MEDS: POLYETHYLENE GLYCOL 3350 (17GM) 1 DOSE PACK PO SCH (08:28)
[2018-07-09] MEDS: NA PHOS,M-B/NA PHOS,DI-BA ENEMA 118ML PR SCH (08:29)
[2018-07-09] MEDS: MIDODRINE HCL 2.5MG TABLET PO SCH ×3 (10:00→18:42)
[2018-07-09] MEDS: SODIUM CHLORIDE 0.9% 1,000 ML IV SCH (12:40)
[2018-07-09] MEDS: HYDROCODONE/ACETAMINOPHEN 5/325MG TABLET PO PRN (23:34)
[2018-07-10] VITALS: BP 123/81
[2018-07-10] MEDS: SODIUM CHLORIDE 0.9% 1,000 ML IV SCH ×2 (00:54→15:17)
[2018-07-10 04:00] VITALS: BP 135/68
[2018-07-10 06:54] LABS: BASOPHILS % 0.7 % (0.0-2.0); EOSINOPHILS % 9.6 % (0.0-5.0); HEMATOCRIT. 44.8 % (42.0-52.0); HEMOGLOBIN. 15.3 g/dL (14.0-18.0); LYMPHOCYTES % 36.6 % (20.0-50.0); MEAN CORPUSCULAR HEMOGLOBIN 29.8 pg (28.0-32.0); MEAN CORPUSCULAR VOLUME 87.3 fL (80.0-94.0); MEAN PLATELET VOLUME 8.6 fl (7.4-10.4); MONOCYTES % 6.6 % (2.0-8.0); NEUTROPHILS % 46.5 % (40.0-76.0); PLATELET 251 x1000/uL (130-400); RED BLOOD CELL COUNT 5.14 mill/uL (4.7-6.1); RED CELL DISTRIBUTION WIDTH 12.9 % (11.6-14.6)
[2018-07-10 07:23] LABS: CHLORIDE 109 mEq/L (98-107)
[2018-07-10] MEDS: CALCIUM CARBONATE/VITAMIN D3 500MG TABLET PO SCH (08:46)
[2018-07-10] MEDS: DOCUSATE SODIUM 100MG CAPSULE PO SCH (08:46)
[2018-07-10] MEDS: MIDODRINE HCL 2.5MG TABLET PO SCH ×2 (08:48→13:00)
[2018-07-10] MEDS: LOSARTAN POTASSIUM 50 MG TABLET PO SCH (08:48)
[2018-07-10] MEDS: METOPROLOL TARTRATE 25MG TABLET PO SCH (08:49)
[2018-07-10] MEDS: POLYETHYLENE GLYCOL 3350 (17GM) 1 DOSE PACK PO SCH (08:52)
[2018-07-10] MEDS: NA PHOS,M-B/NA PHOS,DI-BA ENEMA 118ML PR SCH (09:00)
[2018-07-10 12:00] VITALS: BP 113/67
[2018-07-10 15:34] VITALS: BP 120/62
[2018-07-10 16:00] VITALS: BP 121/68
== END 2018-07-10 16:32 | disposition home health service (06) | DRG 74 ==
LOC: 7WST 13:37
PROVIDERS: ADMIT Internal Medicine; ATTEND Internal Medicine
PROC: 2W3KX1Z Immobilization of Left Finger using Splint (ICD-10-PCS; principal; 2018-07-06)
DX: G90.8 Other disorders of autonomic nervous system (principal); S22.059A Unspecified fracture of T5-T6 vertebra, initial encounter for closed fracture; S22.039A Unspecified fracture of third thoracic vertebra, initial encounter for closed fracture; M48.02 Spinal stenosis, cervical region; I95.1 Orthostatic hypotension; S62.522A Displaced fracture of distal phalanx of left thumb, initial encounter for closed fracture; I27.20 Pulmonary hypertension, unspecified; S09.8XXA Other specified injuries of head, initial encounter; I12.9 Hypertensive chronic kidney disease with stage 1 through stage 4 chronic kidney disease, or unspecified chronic kidney disease; M47.9 Spondylosis, unspecified; M48.061 Spinal stenosis, lumbar region without neurogenic claudication; M85.80 Other specified disorders of bone density and structure, unspecified site; R74.0 Nonspecific elevation of levels of transaminase and lactic acid dehydrogenase [LDH]; R26.9 Unspecified abnormalities of gait and mobility; W18.39XA Other fall on same level, initial encounter; N18.9 Chronic kidney disease, unspecified; Y93.89 Activity, other specified; Y92.89 Other specified places as the place of occurrence of the external cause; Y99.8 Other external cause status; Z87.81 Personal history of (healed) traumatic fracture
CPT/HCPCS: 36415; 80048; 80061; 80076; 82533; 82550; 82553; 82607; 83735; 84439; 84443; 84481; 84484; 85379; 92523; 92610; 93005; 93970; 97116; 97162; 97166; 97530; 97535; J7030; J7620

== ENCOUNTER → 2018-07-26 | Outpatient (CLI) | payer MEDICARE, OTHER ==
[~2018-07-26] MED LIST: DOCU100T PO; LOSA25TA12 MT; MECL-109 PO
== END | disposition home or self-care (01) ==
LOC: RAD 08:53
PROVIDERS: ATTEND Internal Medicine
DX: S62.292D Other fracture of first metacarpal bone, left hand, subsequent encounter for fracture with routine healing (principal); X58.XXXD Exposure to other specified factors, subsequent encounter
CPT/HCPCS: 73120; 73140

== ENCOUNTER 2022-03-13 13:14 | Inpatient (IN) | payer MEDICARE, OTHER, MEDICAID ==
[~2022-03-13] VITALS: Ht 165.1 cm; Wt 67.6 kg
[~2022-03-13 13:14] MED LIST changes: -LOSA25TA12 MT; +LOSA25TA26 MT; -MECL-109 PO; +MECL-159 PO
[2022-03-13 15:16] LABS: HEMATOCRIT. 40.7 % (42.0-52.0); HEMOGLOBIN. 13.5 g/dL (14.0-18.0); MEAN CORPUSCULAR HEMOGLOBIN 28.9 pg (28.0-32.0); MEAN CORPUSCULAR VOLUME 87.1 fL (80.0-94.0); MEAN PLATELET VOLUME 8.9 fl (7.4-10.4); PLATELET 200 x1000/uL (130-400); RED BLOOD CELL COUNT 4.68 mill/uL (4.7-6.1); RED CELL DISTRIBUTION WIDTH 13.8 % (11.6-14.6)
[2022-03-13 15:22] LABS: CHLORIDE 101 mEq/L (98-107)
[2022-03-13 16:06] LABS: PLATELET ESTIMATE NORMAL
[2022-03-13] MEDS ORDERED: SODIUM CHLORIDE 0.9% 1,000 ML IV ONE (18:00)
[2022-03-13] MEDS ORDERED: POTASSIUM CHLORIDE 20MEQ/PACKET PO ONE (18:00)
[2022-03-13] MEDS ORDERED: AZITHROMYCIN 500 MG in DEXT 5% WATER 250 ML IV SCH (19:00)
[2022-03-13] MEDS ORDERED: CEFTRIAXONE 1 G PREMIX 50 ML IV ONE (19:00)
[2022-03-13 21:30] VITALS: BP 131/90
[2022-03-13 22:00] VITALS: BP 131/90
[2022-03-14] VITALS: BP 146/63
[2022-03-14] MEDS ORDERED: CLONIDINE 0.1MG TABLET PO PRN (01:30)
[2022-03-14] MEDS ORDERED: ATOR10TA69 PO (01:39)
[2022-03-14] MEDS ORDERED: METO-385 PO (01:39)
[2022-03-14 04:00] VITALS: BP 136/66
[2022-03-14 07:49] LABS: HEMATOCRIT 37.7 % (42.0-52.0); HEMOGLOBIN 12.4 g/dL (14.0-18.0); MEAN CORPUSCULAR HEMOGLOBIN 28.6 pg (28.0-32.0); PLATELET 194 x1000/uL (130-400); RED BLOOD CELL COUNT 4.34 mill/uL (4.7-6.1); RED CELL DISTRIBUTION WIDTH 13.7 % (11.6-14.6)
[2022-03-14 08:03] VITALS: BP 119/74
[2022-03-14 08:12] LABS: CHLORIDE 105 mEq/L (98-107)
[2022-03-14] MEDS: ATORVASTATIN CALCIUM 10MG TABLET PO SCH (08:34)
[2022-03-14] MEDS: MECLIZINE 25MG TABLET PO SCH ×2 (08:34→16:52)
[2022-03-14] MEDS: DOCUSATE SODIUM 100MG CAPSULE PO SCH (08:34)
[2022-03-14] MEDS: LOSARTAN POTASSIUM 25 MG TABLET PO SCH ×2 (08:34→16:52)
[2022-03-14] MEDS: METOPROLOL SUCCINATE 50MG ER TABLET PO SCH (08:35)
[2022-03-14] MEDS ORDERED: POTASSIUM CHLORIDE 20MEQ/PACKET PO NR (11:00)
[2022-03-14 12:30] VITALS: BP 133/83
[2022-03-14 16:00] VITALS: BP 141/88
[2022-03-14 20:00] VITALS: BP 135/68
[2022-03-15] VITALS: BP 112/73
[2022-03-15] MEDS: MECLIZINE 25MG TABLET PO SCH ×3 (00:41→18:12)
[2022-03-15 04:00] VITALS: BP 132/68
[2022-03-15 08:00] VITALS: BP 128/67
[2022-03-15] MEDS: METOPROLOL SUCCINATE 50MG ER TABLET PO SCH (10:15)
[2022-03-15] MEDS: ATORVASTATIN CALCIUM 10MG TABLET PO SCH (10:15)
[2022-03-15] MEDS: DOCUSATE SODIUM 100MG CAPSULE PO SCH (10:15)
[2022-03-15] MEDS: LOSARTAN POTASSIUM 25 MG TABLET PO SCH ×2 (10:15→18:12)
[2022-03-15 12:00] VITALS: BP 126/78
[2022-03-15] MEDS: CHLORDIAZEPOXIDE 25MG CAPSULE PO SCH ×2 (14:10→21:42)
[2022-03-15] MEDS ORDERED: SODIUM CHLORIDE 0.9% 1,000 ML IV SCH (15:30)
[2022-03-15 16:00] VITALS: BP 138/68
[2022-03-15] MEDS ORDERED: CEFTRIAXONE 1 G PREMIX 50 ML IV SCH (16:30)
[2022-03-15 16:46] LABS: CREATINE KINASE MB FRACTION 1.7 ng/mL (0.5-3.6)
[2022-03-15 16:48] LABS: BG BASE EXCESS 2.4 mmol/L (-2.0-2.0); BG CARBOXYHEMOGLOBIN 0.8 % (0.5-1.5); BG DEOXYHEMOGLOBIN 12.6 % (0.0-5.0); BG FRACTION INSPIRED OXYGEN 28; BG HCO3 ACT 24.2 mmol/L (22.0-26.0); BG METHEMOGLOBIN 0.3 % (0.0-1.5); BG OXYGEN SATURATION 87.3 % (92.0-98.5); BG OXYHEMOGLOBIN 86.3 % (94.0-97.0); BG PCO2 29.6 mmHg (35.0-45.0); BG PO2 46.9 mmHg (75.0-100.0); BG SAMPLE SITE RIGHT RADIAL; BG TOTAL HEMOGLOBIN 14.1 g/dL (12.0-18.0); BG VENT MODE NASAL CANNULA
[2022-03-15 17:03] LABS: BASOPHILS % 0.3 % (0.0-2.0); EOSINOPHILS % 0.2 % (0.0-5.0); HEMATOCRIT. 39.9 % (42.0-52.0); HEMOGLOBIN. 13.5 g/dL (14.0-18.0); LYMPHOCYTES % 7.4 % (20.0-50.0); MEAN CORPUSCULAR HEMOGLOBIN 29.2 pg (28.0-32.0); MEAN CORPUSCULAR VOLUME 86.2 fL (80.0-94.0); MEAN PLATELET VOLUME 9.2 fl (7.4-10.4); MONOCYTES % 2.9 % (2.0-8.0); NEUTROPHILS % 89.2 % (40.0-76.0); PLATELET 235 x1000/uL (130-400); RED BLOOD CELL COUNT 4.63 mill/uL (4.7-6.1); RED CELL DISTRIBUTION WIDTH 13.7 % (11.6-14.6)
[2022-03-15 17:05] LABS: CHLORIDE 109 mEq/L (98-107)
[2022-03-15] MEDS ORDERED: FUROSEMIDE 40MG/4ML VIAL IVP NR (17:15)
[2022-03-15 17:18] LABS: FOLIC ACID (FOLATE) SERUM 2.6 ng/mL (>5.38)
[2022-03-15] MEDS: IPRATROPIUM BROMIDE (0.02%) 0.5MG/2.5ML NEB HHN SCH ×2 (17:30→21:09)
[2022-03-15 18:08] LABS: HEPATITIS B SURFACE ANTIGEN NEGATIVE
[2022-03-15] MEDS: CEFTRIAXONE 1,000 MG in DEXTROSE 5% WATER 50 ML IV SCH (18:28)
[2022-03-15] MEDS: AZITHROMYCIN 500 MG in DEXT 5% WATER 250 ML IV SCH (19:16)
[2022-03-15 20:00] VITALS: BP 94/54
[2022-03-16] VITALS: BP 93/52
[2022-03-16] MEDS: MECLIZINE 25MG TABLET PO SCH ×3 (00:21→16:51)
[2022-03-16] MEDS: IPRATROPIUM BROMIDE (0.02%) 0.5MG/2.5ML NEB HHN SCH ×6 (01:30→20:07)
[2022-03-16 04:00] VITALS: BP 133/71
[2022-03-16] MEDS: CHLORDIAZEPOXIDE 25MG CAPSULE PO SCH ×3 (05:07→21:39)
[2022-03-16 06:58] LABS: BASOPHILS % 0.2 % (0.0-2.0); EOSINOPHILS % 0.4 % (0.0-5.0); HEMATOCRIT. 41.3 % (42.0-52.0); HEMOGLOBIN. 13.7 g/dL (14.0-18.0); LYMPHOCYTES % 25.5 % (20.0-50.0); MEAN CORPUSCULAR HEMOGLOBIN 29.4 pg (28.0-32.0); MEAN CORPUSCULAR VOLUME 88.4 fL (80.0-94.0); NEUTROPHILS % 69.9 % (40.0-76.0); PLATELET 253 x1000/uL (130-400); RED BLOOD CELL COUNT 4.67 mill/uL (4.7-6.1); RED CELL DISTRIBUTION WIDTH 13.9 % (11.6-14.6)
[2022-03-16 08:00] VITALS: BP 140/72
[2022-03-16] MEDS: FOLIC ACID 1MG TABLET PO SCH (09:00)
[2022-03-16] MEDS: METOPROLOL SUCCINATE 50MG ER TABLET PO SCH (09:00)
[2022-03-16] MEDS: DOCUSATE SODIUM 100MG CAPSULE PO SCH (09:00)
[2022-03-16] MEDS: LOSARTAN POTASSIUM 25 MG TABLET PO SCH ×2 (09:00→16:51)
[2022-03-16] MEDS: CYANOCOBALAMIN 1000MCG TABLET PO SCH (10:00)
[2022-03-16 12:00] VITALS: BP 135/76
[2022-03-16 16:00] VITALS: BP 132/75
[2022-03-16] MEDS ORDERED: POTASSIUM CHLORIDE 20MEQ TABLET SR PO NR (16:08)
[2022-03-16] MEDS: LACTULOSE 20G/30ML UDC PO SCH ×2 (16:50→21:39)
[2022-03-16] MEDS: CEFTRIAXONE 1,000 MG in DEXTROSE 5% WATER 50 ML IV SCH (16:50)
[2022-03-16] MEDS: AZITHROMYCIN 500 MG in DEXT 5% WATER 250 ML IV SCH (16:51)
[2022-03-16 20:00] VITALS: BP 141/72
[2022-03-16] MEDS: ATORVASTATIN CALCIUM 10MG TABLET PO SCH (21:39)
[2022-03-17] VITALS: BP 154/82
[2022-03-17] MEDS: IPRATROPIUM BROMIDE (0.02%) 0.5MG/2.5ML NEB HHN SCH ×5 (00:14→20:35)
[2022-03-17] MEDS: MECLIZINE 25MG TABLET PO SCH ×3 (01:48→18:21)
[2022-03-17 04:00] VITALS: BP 145/79
[2022-03-17] MEDS: LACTULOSE 20G/30ML UDC PO SCH ×3 (05:25→21:25)
[2022-03-17] MEDS: CHLORDIAZEPOXIDE 25MG CAPSULE PO SCH ×3 (05:25→21:25)
[2022-03-17 05:42] LABS: BASOPHILS % 0.4 % (0.0-2.0); EOSINOPHILS % 1.4 % (0.0-5.0); HEMATOCRIT. 39.4 % (42.0-52.0); HEMOGLOBIN. 13.1 g/dL (14.0-18.0); MEAN CORPUSCULAR HEMOGLOBIN 28.8 pg (28.0-32.0); MEAN CORPUSCULAR VOLUME 86.8 fL (80.0-94.0); MONOCYTES % 5.8 % (2.0-8.0); NEUTROPHILS % 74.4 % (40.0-76.0); PLATELET 228 x1000/uL (130-400); RED BLOOD CELL COUNT 4.54 mill/uL (4.7-6.1); RED CELL DISTRIBUTION WIDTH 14.1 % (11.6-14.6)
[2022-03-17 05:58] LABS: CHLORIDE 109 mEq/L (98-107)
[2022-03-17 06:13] LABS: CREATINE KINASE 68 IU/L (39-308); PHOSPHORUS 3.4 mg/dL (2.5-4.9)
[2022-03-17] MEDS: CYANOCOBALAMIN 1000MCG TABLET PO SCH (06:59)
[2022-03-17 08:00] VITALS: BP 146/81
[2022-03-17] MEDS ORDERED: POTASSIUM CHLORIDE 20MEQ TABLET SR PO NR (09:00)
[2022-03-17 12:00] VITALS: BP 135/74
[2022-03-17] MEDS: TAMSULOSIN HCL 0.4MG SR CAPSULE PO SCH (12:22)
[2022-03-17] MEDS: FOLIC ACID 1MG TABLET PO SCH (12:23)
[2022-03-17] MEDS: DOCUSATE SODIUM 100MG CAPSULE PO SCH (12:23)
[2022-03-17] MEDS: LOSARTAN POTASSIUM 25 MG TABLET PO SCH ×2 (12:23→18:20)
[2022-03-17] MEDS: METOPROLOL SUCCINATE 50MG ER TABLET PO SCH (12:24)
[2022-03-17 12:28] LABS: BG CARBOXYHEMOGLOBIN 0.3 % (0.5-1.5); BG DEOXYHEMOGLOBIN 5.5 % (0.0-5.0); BG FRACTION INSPIRED OXYGEN 32; BG HCO3 ACT 31.6 mmol/L (22.0-26.0); BG METHEMOGLOBIN 0.1 % (0.0-1.5); BG OXYGEN SATURATION 94.5 % (92.0-98.5); BG OXYHEMOGLOBIN 94.1 % (94.0-97.0); BG PCO2 45.1 mmHg (35.0-45.0); BG PH 7.464 (7.350-7.450); BG SAMPLE SITE RIGHT BRACHIAL; BG TOTAL HEMOGLOBIN 12.8 g/dL (12.0-18.0); BG VENT MODE NASAL CANNULA
[2022-03-17 16:00] VITALS: BP 140/80
[2022-03-17] MEDS: THIAMINE HCL 100MG TABLET PO SCH (18:21)
[2022-03-17] MEDS: CEFTRIAXONE 1,000 MG in DEXTROSE 5% WATER 50 ML IV SCH (18:21)
[2022-03-17] MEDS: AZITHROMYCIN 500 MG in DEXT 5% WATER 250 ML IV SCH (18:21)
[2022-03-17 19:40] LABS: CLARITY URINE CLEAR (CLEAR); COLOR URINE YELLOW (YELLOW); KETONES URINE TRACE (NEGATIVE); LEUKOCYTE ESTERASE URINE 3+ (NEGATIVE); NITRITE URINE NEGATIVE (NEGATIVE); OCCULT BLOOD URINE TRACE (NEGATIVE); PROTEIN URINE TRACE (NEGATIVE); SPECIFIC GRAVITY URINE 1.011 (1.005-1.030)
[2022-03-17 20:00] VITALS: BP 116/66
[2022-03-17] MEDS: ATORVASTATIN CALCIUM 10MG TABLET PO SCH (21:25)
[2022-03-18] VITALS: BP 135/68
[2022-03-18] MEDS: IPRATROPIUM BROMIDE (0.02%) 0.5MG/2.5ML NEB HHN SCH ×6 (00:16→20:45)
[2022-03-18] MEDS: MECLIZINE 25MG TABLET PO SCH ×2 (01:17→08:36)
[2022-03-18 04:00] VITALS: BP 127/68
[2022-03-18] MEDS: LACTULOSE 20G/30ML UDC PO SCH ×3 (06:00→21:06)
[2022-03-18] MEDS: CHLORDIAZEPOXIDE 25MG CAPSULE PO SCH (06:00)
[2022-03-18 07:20] LABS: CHLORIDE 108 mEq/L (98-107); PHOSPHORUS 3.3 mg/dL (2.5-4.9)
[2022-03-18 07:28] LABS: BASOPHILS % 0.3 % (0.0-2.0); HEMATOCRIT. 38.3 % (42.0-52.0); HEMOGLOBIN. 12.8 g/dL (14.0-18.0); LYMPHOCYTES % 10.8 % (20.0-50.0); MEAN CORPUSCULAR HEMOGLOBIN 29.4 pg (28.0-32.0); MEAN CORPUSCULAR VOLUME 88.2 fL (80.0-94.0); MEAN PLATELET VOLUME 9.2 fl (7.4-10.4); MONOCYTES % 5.5 % (2.0-8.0); NEUTROPHILS % 82.4 % (40.0-76.0); PLATELET 210 x1000/uL (130-400); RED BLOOD CELL COUNT 4.34 mill/uL (4.7-6.1); RED CELL DISTRIBUTION WIDTH 14.4 % (11.6-14.6)
[2022-03-18 08:00] VITALS: BP 115/67
[2022-03-18] MEDS: TAMSULOSIN HCL 0.4MG SR CAPSULE PO SCH (08:35)
[2022-03-18] MEDS: LOSARTAN POTASSIUM 25 MG TABLET PO SCH ×2 (08:36→17:18)
[2022-03-18] MEDS: FOLIC ACID 1MG TABLET PO SCH (08:36)
[2022-03-18] MEDS: THIAMINE HCL 100MG TABLET PO SCH (08:36)
[2022-03-18] MEDS: DOCUSATE SODIUM 100MG CAPSULE PO SCH (08:37)
[2022-03-18] MEDS: METOPROLOL SUCCINATE 50MG ER TABLET PO SCH ×2 (08:37→09:00)
[2022-03-18] MEDS: CYANOCOBALAMIN 1000MCG TABLET PO SCH (09:05)
[2022-03-18] MEDS ORDERED: POTASSIUM CHLORIDE INJ 40 MEQ in DEXT 5% WATER 250 ML IV ONE (09:15)
[2022-03-18] MEDS ORDERED: CYANOCOBALAMIN 1000MCG/ML VIAL IM SCH (10:00)
[2022-03-18] MEDS: KCL 20MEQ/100ML X 2 FOR TOTAL KCL 40MEQ/200ML IV SCH ×2 (10:40→15:46)
[2022-03-18] MEDS: SODIUM CHLORIDE 0.45% 1,000 ML IV SCH (10:40)
[2022-03-18] MEDS ORDERED: THIAMINE HCL 100 MG in SODIUM CHLORIDE 0.9% 49 ML IV SCH (11:00)
[2022-03-18 11:40] VITALS: BP 135/72
[2022-03-18 16:00] VITALS: BP 123/64
[2022-03-18] MEDS: CEFTRIAXONE 1,000 MG in DEXTROSE 5% WATER 50 ML IV SCH (17:18)
[2022-03-18] MEDS: AZITHROMYCIN 500 MG in DEXT 5% WATER 250 ML IV SCH (18:53)
[2022-03-18 20:00] VITALS: BP 116/65
[2022-03-18] MEDS: ATORVASTATIN CALCIUM 10MG TABLET PO SCH (21:09)
[2022-03-19] VITALS (7 sets, daily range): BP systolic 99–116; BP diastolic 45–68
[2022-03-19] MEDS: IPRATROPIUM BROMIDE (0.02%) 0.5MG/2.5ML NEB HHN SCH ×6 (00:50→20:07)
[2022-03-19] MEDS: LACTULOSE 20G/30ML UDC PO SCH (05:31)
[2022-03-19 06:57] LABS: BASOPHILS % 0.6 % (0.0-2.0); EOSINOPHILS % 3.2 % (0.0-5.0); HEMATOCRIT. 34.7 % (42.0-52.0); HEMOGLOBIN. 11.8 g/dL (14.0-18.0); LYMPHOCYTES % 16.9 % (20.0-50.0); MEAN CORPUSCULAR HEMOGLOBIN 29.5 pg (28.0-32.0); MEAN CORPUSCULAR VOLUME 86.6 fL (80.0-94.0); MEAN PLATELET VOLUME 9.7 fl (7.4-10.4); MONOCYTES % 7.1 % (2.0-8.0); NEUTROPHILS % 72.2 % (40.0-76.0); PLATELET 163 x1000/uL (130-400); RED CELL DISTRIBUTION WIDTH 14.2 % (11.6-14.6)
[2022-03-19 07:12] LABS: CHLORIDE 108 mEq/L (98-107)
[2022-03-19 07:18] LABS: PHOSPHORUS 2.7 mg/dL (2.5-4.9)
[2022-03-19 07:57] LABS: VITAMIN B12 SERUM > 2000.0 pg/mL (211-911)
[2022-03-19] MEDS: METOPROLOL SUCCINATE 50MG ER TABLET PO SCH (08:57)
[2022-03-19] MEDS: LOSARTAN POTASSIUM 25 MG TABLET PO SCH ×2 (09:21→17:00)
[2022-03-19] MEDS: CYANOCOBALAMIN 1000MCG TABLET PO SCH (09:21)
[2022-03-19] MEDS: TAMSULOSIN HCL 0.4MG SR CAPSULE PO SCH (09:21)
[2022-03-19] MEDS: DOCUSATE SODIUM 100MG CAPSULE PO SCH (09:21)
[2022-03-19] MEDS: THIAMINE HCL 100MG TABLET PO SCH (09:21)
[2022-03-19] MEDS: FOLIC ACID 1MG TABLET PO SCH (09:21)
[2022-03-19] MEDS ORDERED: POTASSIUM CHLORIDE 20MEQ TABLET SR PO NR ×2 (09:30→14:00)
[2022-03-19] MEDS: SODIUM CHLORIDE 0.45% 1,000 ML IV SCH (10:28)
[2022-03-19] MEDS: ACETAMINOPHEN 650MG/20.3ML UDC PO PRN ×2 (11:41→20:48)
[2022-03-19] MEDS ORDERED: ASPIRIN 81MG TABLET PO SCH (13:00)
[2022-03-19] MEDS: AZITHROMYCIN 500 MG in DEXT 5% WATER 250 ML IV SCH (17:13)
[2022-03-19] MEDS: CEFTRIAXONE 1,000 MG in DEXTROSE 5% WATER 50 ML IV SCH (17:13)
[2022-03-19] MEDS: ATORVASTATIN CALCIUM 10MG TABLET PO SCH (20:48)
== END 2022-03-19 23:15 | DRG 871 ==
LOC: ER 13:14 → 6WST 18:54 → ENRESERV 19:19
PROVIDERS: ADMIT Internal Medicine; ATTEND Internal Medicine
DX: A41.9 Sepsis, unspecified organism (principal); G92.8 Other toxic encephalopathy; J18.9 Pneumonia, unspecified organism; I50.33 Acute on chronic diastolic (congestive) heart failure; J96.01 Acute respiratory failure with hypoxia; E72.20 Disorder of urea cycle metabolism, unspecified; N17.9 Acute kidney failure, unspecified; F10.239 Alcohol dependence with withdrawal, unspecified; E87.3 Alkalosis; N13.30 Unspecified hydronephrosis; M54.41 Lumbago with sciatica, right side; Z20.822 Contact with and (suspected) exposure to COVID-19; E87.6 Hypokalemia; R29.6 Repeated falls; R74.01 Elevation of levels of liver transaminase levels; R26.9 Unspecified abnormalities of gait and mobility; R53.81 Other malaise; E80.6 Other disorders of bilirubin metabolism; R33.9 Retention of urine, unspecified; D64.9 Anemia, unspecified; I11.0 Hypertensive heart disease with heart failure; I07.1 Rheumatic tricuspid insufficiency; E53.8 Deficiency of other specified B group vitamins; K72.90 Hepatic failure, unspecified without coma; E87.5 Hyperkalemia; Z82.1 Family history of blindness and visual loss; Z82.49 Family history of ischemic heart disease and other diseases of the circulatory system; Z87.81 Personal history of (healed) traumatic fracture; Z86.73 Personal history of transient ischemic attack (TIA), and cerebral infarction without residual deficits
CPT/HCPCS: 36415; 36600; 70551; 71045; 71250; 76700; 78582; 80048; 80053; 80076; 81003; 82140; 82306; 82375; 82550; 82553; 82607; 82746; 82805; 83605; 83735; 83880; 84100; 84145; 84153; 84443; 84484; 85025; 85027; 85379; 86705; 86709; 86803; 87340; 87426; 93005; 93306; 93970; 94640; 97110; 97162; 97166; 97530; 97535; 99285; A9558; J0456; J0696; J1940; J3411; J3420; J3480; J7030; J7060; J8597; G0103

== ENCOUNTER 2022-03-19 23:20 | Inpatient (IN) | payer MEDICARE, OTHER, MEDICAID ==
[~2022-03-19] VITALS: Ht 165.1 cm; Wt 71.7 kg
[~2022-03-19 23:20] MED LIST changes: +ATOR10TA69 PO; +METO-385 PO
[2022-03-19 23:30] VITALS: BP 110/62
[2022-03-20 06:09] LABS: BASOPHILS % 0.6 % (0.0-2.0); EOSINOPHILS % 3.3 % (0.0-5.0); HEMATOCRIT. 35.8 % (42.0-52.0); HEMOGLOBIN. 11.9 g/dL (14.0-18.0); LYMPHOCYTES % 15.5 % (20.0-50.0); MEAN CORPUSCULAR VOLUME 86.8 fL (80.0-94.0); MEAN PLATELET VOLUME 9.6 fl (7.4-10.4); MONOCYTES % 5.8 % (2.0-8.0); NEUTROPHILS % 74.8 % (40.0-76.0); PLATELET 172 x1000/uL (130-400); RED BLOOD CELL COUNT 4.12 mill/uL (4.7-6.1); RED CELL DISTRIBUTION WIDTH 13.8 % (11.6-14.6)
[2022-03-20 06:37] LABS: CHLORIDE 106 mEq/L (98-107)
[2022-03-20 08:00] VITALS: BP 148/75
[2022-03-20] MEDS: MULTIVITAMINS,THER W-MINERALS TABLET PO SCH (11:48)
[2022-03-20] MEDS: TAMSULOSIN HCL 0.4MG SR CAPSULE PO SCH (11:50)
[2022-03-20] MEDS: FOLIC ACID 1MG TABLET PO SCH (11:50)
[2022-03-20] MEDS: THIAMINE HCL 100MG TABLET PO SCH (11:50)
[2022-03-20] MEDS: ASPIRIN 81MG TABLET PO SCH (11:50)
[2022-03-20] MEDS: LACTULOSE 20G/30ML UDC PO SCH ×2 (11:51→18:59)
[2022-03-20 12:00] VITALS: BP 140/76
[2022-03-20 16:00] VITALS: BP 138/88
[2022-03-20 20:00] VITALS: BP 121/73
[2022-03-20] MEDS: CEFTRIAXONE 1,000 MG in DEXTROSE 5% WATER 50 ML IV SCH (20:29)
[2022-03-20] MEDS: ATORVASTATIN CALCIUM 20MG TABLET PO SCH (20:29)
[2022-03-20] MEDS ORDERED: ENOXAPARIN 60MG/0.6ML SYR SUBCUT NR (20:30)
[2022-03-20 21:40] LABS: INR 1.2; PROTHROMBIN TIME 12.4 sec (9.6-11.0)
[2022-03-21] VITALS: BP 121/73
[2022-03-21 06:45] LABS: CHLORIDE 107 mEq/L (98-107)
[2022-03-21 06:57] LABS: TOTAL IRON BINDING CAPACITY 175 ug/dL (250-450)
[2022-03-21 07:26] LABS: BASOPHILS % 0.6 % (0.0-2.0); EOSINOPHILS % 3.4 % (0.0-5.0); HEMATOCRIT. 37.3 % (42.0-52.0); HEMOGLOBIN. 12.5 g/dL (14.0-18.0); LYMPHOCYTES % 21.3 % (20.0-50.0); MEAN CORPUSCULAR VOLUME 86.5 fL (80.0-94.0); MONOCYTES % 5.3 % (2.0-8.0); NEUTROPHILS % 69.4 % (40.0-76.0); PLATELET 199 x1000/uL (130-400); RED BLOOD CELL COUNT 4.32 mill/uL (4.7-6.1); RED CELL DISTRIBUTION WIDTH 13.8 % (11.6-14.6)
[2022-03-21 08:00] VITALS: BP 119/80
[2022-03-21] MEDS: ENOXAPARIN 60MG/0.6ML SYR SUBCUT SCH ×2 (08:51→21:32)
[2022-03-21] MEDS: ASPIRIN 81MG TABLET PO SCH (08:51)
[2022-03-21] MEDS: THIAMINE HCL 100MG TABLET PO SCH (08:51)
[2022-03-21] MEDS: TAMSULOSIN HCL 0.4MG SR CAPSULE PO SCH ×2 (08:52→19:02)
[2022-03-21] MEDS: LACTULOSE 20G/30ML UDC PO SCH ×2 (08:52→17:09)
[2022-03-21] MEDS: MULTIVITAMINS,THER W-MINERALS TABLET PO SCH (08:52)
[2022-03-21] MEDS: FOLIC ACID 1MG TABLET PO SCH (08:52)
[2022-03-21 10:50] LABS: CLARITY URINE CLEAR (CLEAR); COLOR URINE YELLOW (YELLOW); KETONES URINE NEGATIVE (NEGATIVE); LEUKOCYTE ESTERASE URINE NEGATIVE (NEGATIVE); NITRITE URINE NEGATIVE (NEGATIVE); OCCULT BLOOD URINE TRACE (NEGATIVE); PH URINE 6.5 (4.5-8.0); PROTEIN URINE TRACE (NEGATIVE); SPECIFIC GRAVITY URINE 1.011 (1.005-1.030); UROBILINOGEN URINE 0.2 E.U./dL (0.2-1.0)
[2022-03-21 12:00] VITALS: BP 117/73
[2022-03-21 16:00] VITALS: BP 125/71
[2022-03-21] MEDS: CEFTRIAXONE 1,000 MG in DEXTROSE 5% WATER 50 ML IV SCH (17:02)
[2022-03-21] MEDS: FERROUS SULFATE 325MG TABLET PO SCH (17:08)
[2022-03-21] MEDS: FINASTERIDE 5MG TABLET PO SCH (19:03)
[2022-03-21 20:00] VITALS: BP 108/63
[2022-03-21] MEDS: ATORVASTATIN CALCIUM 20MG TABLET PO SCH (21:31)
[2022-03-22 08:00] VITALS: BP 151/77
[2022-03-22] MEDS: FINASTERIDE 5MG TABLET PO SCH (09:04)
[2022-03-22] MEDS: FERROUS SULFATE 325MG TABLET PO SCH ×3 (09:04→17:13)
[2022-03-22] MEDS: ASCORBIC ACID 500 MG TABLET PO SCH (09:04)
[2022-03-22] MEDS: ASPIRIN 81MG TABLET PO SCH (09:04)
[2022-03-22] MEDS: FOLIC ACID 1MG TABLET PO SCH (09:04)
[2022-03-22] MEDS: MULTIVITAMINS,THER W-MINERALS TABLET PO SCH (09:04)
[2022-03-22] MEDS: THIAMINE HCL 100MG TABLET PO SCH (09:05)
[2022-03-22] MEDS: LACTULOSE 20G/30ML UDC PO SCH ×2 (09:06→17:13)
[2022-03-22] MEDS: TAMSULOSIN HCL 0.4MG SR CAPSULE PO SCH ×2 (09:06→17:17)
[2022-03-22] MEDS: ENOXAPARIN 60MG/0.6ML SYR SUBCUT SCH ×2 (09:07→21:19)
[2022-03-22] MEDS: METOPROLOL TARTRATE 25MG TABLET PO SCH ×2 (15:01→21:20)
[2022-03-22] MEDS: DEXT 5%/0.45% NACL 1000ML 1,000 ML IV SCH (15:06)
[2022-03-22] MEDS: CEFTRIAXONE 1,000 MG in DEXTROSE 5% WATER 50 ML IV SCH (17:46)
[2022-03-22 20:00] VITALS: BP 113/63
[2022-03-22] MEDS: ATORVASTATIN CALCIUM 20MG TABLET PO SCH (21:20)
[2022-03-23 08:00] VITALS: BP 141/68
[2022-03-23] MEDS: FOLIC ACID 1MG TABLET PO SCH (09:00)
[2022-03-23] MEDS: ASCORBIC ACID 500 MG TABLET PO SCH (09:00)
[2022-03-23] MEDS: TAMSULOSIN HCL 0.4MG SR CAPSULE PO SCH ×2 (09:00→16:53)
[2022-03-23] MEDS: ENOXAPARIN 60MG/0.6ML SYR SUBCUT SCH ×2 (09:00→22:04)
[2022-03-23] MEDS: FINASTERIDE 5MG TABLET PO SCH (09:00)
[2022-03-23] MEDS: ASPIRIN 81MG TABLET PO SCH (09:00)
[2022-03-23] MEDS: LACTULOSE 20G/30ML UDC PO SCH ×2 (09:00→16:45)
[2022-03-23] MEDS: THIAMINE HCL 100MG TABLET PO SCH (09:00)
[2022-03-23] MEDS: FERROUS SULFATE 325MG TABLET PO SCH ×3 (09:00→16:53)
[2022-03-23] MEDS: MULTIVITAMINS,THER W-MINERALS TABLET PO SCH (09:00)
[2022-03-23] MEDS: METOPROLOL TARTRATE 25MG TABLET PO SCH (09:00)
[2022-03-23] MEDS ORDERED: BARIUM SULFATE 176 GM SUSP.RECON ONE (10:19)
[2022-03-23] MEDS: IPRATROPIUM/ALBUTEROL 0.5-3(2.5)MG/3ML NEB HHN SCH ×2 (10:30→16:00)
[2022-03-23 12:13] LABS: BASOPHILS % 0.9 % (0.0-2.0); EOSINOPHILS % 2.7 % (0.0-5.0); HEMATOCRIT. 36.9 % (42.0-52.0); HEMOGLOBIN. 12.3 g/dL (14.0-18.0); MEAN CORPUSCULAR HEMOGLOBIN 29.1 pg (28.0-32.0); MEAN CORPUSCULAR VOLUME 87.3 fL (80.0-94.0); MEAN PLATELET VOLUME 10.6 fl (7.4-10.4); MONOCYTES % 6.5 % (2.0-8.0); NEUTROPHILS % 64.9 % (40.0-76.0); PLATELET 262 x1000/uL (130-400); RED BLOOD CELL COUNT 4.23 mill/uL (4.7-6.1); RED CELL DISTRIBUTION WIDTH 13.8 % (11.6-14.6)
[2022-03-23 12:45] LABS: CHLORIDE 104 mEq/L (98-107)
[2022-03-23] MEDS ORDERED: NALOXONE HCL 0.4MG/ML VIAL IV PRN (14:00)
[2022-03-23] MEDS ORDERED: ACETAMINOPHEN 325MG TABLET PO NR (14:00)
[2022-03-23] MEDS ORDERED: HYDROCODONE/ACETAMINOPHEN 5/325MG TABLET PO PRN (14:00)
[2022-03-23] MEDS: LIDOCAINE 5% PATCH TOP SCH (15:26)
[2022-03-23] MEDS: DILTIAZEM HCL 30MG TABLET PO SCH ×2 (15:27→17:50)
[2022-03-23] MEDS: DEXT 5%/0.45% NACL 1000ML 1,000 ML IV SCH (16:02)
[2022-03-23] MEDS: DICLOFENAC SODIUM 1% GEL 50GM TOP SCH ×2 (16:53→21:00)
[2022-03-23 19:39] VITALS: BP 94/61
[2022-03-23] MEDS: METOPROLOL TARTRATE 50MG TABLET PO SCH (20:34)
[2022-03-23] MEDS: ATORVASTATIN CALCIUM 20MG TABLET PO SCH (22:04)
[2022-03-24] MEDS: IPRATROPIUM/ALBUTEROL 0.5-3(2.5)MG/3ML NEB HHN SCH ×3 (02:15→21:02)
[2022-03-24] MEDS: ACETAMINOPHEN 325MG TABLET PO PRN (05:20)
[2022-03-24] MEDS: DILTIAZEM HCL 30MG TABLET PO SCH ×3 (05:59→18:00)
[2022-03-24 07:38] LABS: EOSINOPHILS % 3.2 % (0.0-5.0); HEMATOCRIT. 35.4 % (42.0-52.0); LYMPHOCYTES % 23.6 % (20.0-50.0); MEAN CORPUSCULAR HEMOGLOBIN 29.2 pg (28.0-32.0); MEAN CORPUSCULAR VOLUME 86.1 fL (80.0-94.0); MEAN PLATELET VOLUME 9.1 fl (7.4-10.4); NEUTROPHILS % 67.2 % (40.0-76.0); PLATELET 284 x1000/uL (130-400); RED BLOOD CELL COUNT 4.11 mill/uL (4.7-6.1); RED CELL DISTRIBUTION WIDTH 13.6 % (11.6-14.6)
[2022-03-24 07:50] LABS: CHLORIDE 104 mEq/L (98-107)
[2022-03-24 08:00] VITALS: BP 94/60
[2022-03-24] MEDS: LACTULOSE 20G/30ML UDC PO SCH ×2 (09:00→17:20)
[2022-03-24] MEDS: METOPROLOL TARTRATE 50MG TABLET PO SCH ×2 (09:00→21:00)
[2022-03-24] MEDS: DICLOFENAC SODIUM 1% GEL 50GM TOP SCH ×4 (09:12→21:15)
[2022-03-24] MEDS: ASPIRIN 81MG TABLET PO SCH (09:13)
[2022-03-24] MEDS: ENOXAPARIN 60MG/0.6ML SYR SUBCUT SCH ×2 (09:14→21:14)
[2022-03-24] MEDS: TAMSULOSIN HCL 0.4MG SR CAPSULE PO SCH ×2 (09:14→17:21)
[2022-03-24] MEDS: FOLIC ACID 1MG TABLET PO SCH (09:14)
[2022-03-24] MEDS: ASCORBIC ACID 500 MG TABLET PO SCH (09:15)
[2022-03-24] MEDS: FINASTERIDE 5MG TABLET PO SCH (09:15)
[2022-03-24] MEDS: THIAMINE HCL 100MG TABLET PO SCH (09:15)
[2022-03-24] MEDS: MULTIVITAMINS,THER W-MINERALS TABLET PO SCH (09:15)
[2022-03-24] MEDS: FERROUS SULFATE 325MG TABLET PO SCH ×3 (09:15→17:00)
[2022-03-24] MEDS: LIDOCAINE 5% PATCH TOP SCH (09:16)
[2022-03-24] MEDS: DEXT 5%/0.45% NACL 1000ML 1,000 ML IV SCH (12:00)
[2022-03-24 20:08] VITALS: BP 94/92
[2022-03-24] MEDS: ATORVASTATIN CALCIUM 20MG TABLET PO SCH (21:13)
[2022-03-25] MEDS: DILTIAZEM HCL 30MG TABLET PO SCH ×5 (00:37→23:15)
[2022-03-25] MEDS: ACETAMINOPHEN 325MG TABLET PO PRN ×3 (02:23→23:22)
[2022-03-25 08:00] VITALS: BP 110/56
[2022-03-25] MEDS: IPRATROPIUM/ALBUTEROL 0.5-3(2.5)MG/3ML NEB HHN SCH ×2 (09:00→22:04)
[2022-03-25] MEDS: DICLOFENAC SODIUM 1% GEL 50GM TOP SCH ×4 (09:00→21:35)
[2022-03-25] MEDS: LIDOCAINE 5% PATCH TOP SCH (09:00)
[2022-03-25] MEDS: LACTULOSE 20G/30ML UDC PO SCH ×2 (09:05→17:45)
[2022-03-25] MEDS: FOLIC ACID 1MG TABLET PO SCH (09:06)
[2022-03-25] MEDS: THIAMINE HCL 100MG TABLET PO SCH (09:06)
[2022-03-25] MEDS: FERROUS SULFATE 325MG TABLET PO SCH ×3 (09:06→17:45)
[2022-03-25] MEDS: FINASTERIDE 5MG TABLET PO SCH (09:06)
[2022-03-25] MEDS: ASCORBIC ACID 500 MG TABLET PO SCH (09:06)
[2022-03-25] MEDS: MULTIVITAMINS,THER W-MINERALS TABLET PO SCH (09:06)
[2022-03-25] MEDS: ASPIRIN 81MG TABLET PO SCH (09:06)
[2022-03-25] MEDS: TAMSULOSIN HCL 0.4MG SR CAPSULE PO SCH ×2 (09:06→17:50)
[2022-03-25] MEDS: ENOXAPARIN 60MG/0.6ML SYR SUBCUT SCH ×2 (09:07→21:03)
[2022-03-25] MEDS: METOPROLOL TARTRATE 50MG TABLET PO SCH ×2 (09:07→21:00)
[2022-03-25] MEDS ORDERED: LIDOCAINE 5% PATCH TOP SCH (13:00)
[2022-03-25 20:00] VITALS: BP 103/52
[2022-03-25] MEDS: ATORVASTATIN CALCIUM 20MG TABLET PO SCH (21:01)
[2022-03-26] MEDS: DILTIAZEM HCL 30MG TABLET PO SCH ×3 (05:50→17:20)
[2022-03-26] MEDS: IPRATROPIUM/ALBUTEROL 0.5-3(2.5)MG/3ML NEB HHN SCH ×2 (07:40→21:02)
[2022-03-26 08:00] VITALS: BP 116/56
[2022-03-26] MEDS: FERROUS SULFATE 325MG TABLET PO SCH ×3 (10:25→17:18)
[2022-03-26] MEDS: THIAMINE HCL 100MG TABLET PO SCH (10:25)
[2022-03-26] MEDS: MULTIVITAMINS,THER W-MINERALS TABLET PO SCH (10:25)
[2022-03-26] MEDS: ENOXAPARIN 60MG/0.6ML SYR SUBCUT SCH ×2 (10:26→21:13)
[2022-03-26] MEDS: ASPIRIN 81MG TABLET PO SCH (10:26)
[2022-03-26] MEDS: FOLIC ACID 1MG TABLET PO SCH (10:26)
[2022-03-26] MEDS: LACTULOSE 20G/30ML UDC PO SCH ×2 (10:26→17:18)
[2022-03-26] MEDS: METOPROLOL TARTRATE 50MG TABLET PO SCH ×2 (10:26→21:00)
[2022-03-26] MEDS: ASCORBIC ACID 500 MG TABLET PO SCH (10:26)
[2022-03-26] MEDS: TAMSULOSIN HCL 0.4MG SR CAPSULE PO SCH ×2 (10:26→17:18)
[2022-03-26] MEDS: LIDOCAINE 5% PATCH TOP SCH (10:27)
[2022-03-26] MEDS: DICLOFENAC SODIUM 1% GEL 50GM TOP SCH ×5 (10:28→21:12)
[2022-03-26] MEDS: FINASTERIDE 5MG TABLET PO SCH (10:28)
[2022-03-26] MEDS: DEXT 5%/0.45% NACL 1000ML 1,000 ML IV SCH (11:35)
[2022-03-26 19:06] LABS: 25-HYDROXY VITAMIN D3 17 ng/mL (.)
[2022-03-26 20:00] VITALS: BP 99/51
[2022-03-26] MEDS: ATORVASTATIN CALCIUM 20MG TABLET PO SCH (21:16)
[2022-03-27] MEDS: DEXT 5%/0.45% NACL 1000ML 1,000 ML IV SCH ×2 (01:18→21:14)
[2022-03-27] MEDS: DILTIAZEM HCL 30MG TABLET PO SCH ×4 (05:39→17:37)
[2022-03-27 06:20] LABS: BASOPHILS % 1.1 % (0.0-2.0); EOSINOPHILS % 4.3 % (0.0-5.0); HEMATOCRIT. 31.5 % (42.0-52.0); HEMOGLOBIN. 10.8 g/dL (14.0-18.0); LYMPHOCYTES % 32.9 % (20.0-50.0); MEAN CORPUSCULAR HEMOGLOBIN 29.5 pg (28.0-32.0); MEAN CORPUSCULAR VOLUME 86.3 fL (80.0-94.0); MEAN PLATELET VOLUME 8.5 fl (7.4-10.4); MONOCYTES % 5.3 % (2.0-8.0); NEUTROPHILS % 56.4 % (40.0-76.0); PLATELET 313 x1000/uL (130-400); RED BLOOD CELL COUNT 3.65 mill/uL (4.7-6.1); RED CELL DISTRIBUTION WIDTH 13.5 % (11.6-14.6)
[2022-03-27 06:38] LABS: CHLORIDE 109 mEq/L (98-107)
[2022-03-27 08:00] VITALS: BP 107/55
[2022-03-27] MEDS: DICLOFENAC SODIUM 1% GEL 50GM TOP SCH ×4 (09:00→21:17)
[2022-03-27] MEDS: ENOXAPARIN 60MG/0.6ML SYR SUBCUT SCH ×2 (10:17→21:17)
[2022-03-27] MEDS: MULTIVITAMINS,THER W-MINERALS TABLET PO SCH (10:17)
[2022-03-27] MEDS: FOLIC ACID 1MG TABLET PO SCH (10:18)
[2022-03-27] MEDS: FINASTERIDE 5MG TABLET PO SCH (10:18)
[2022-03-27] MEDS: THIAMINE HCL 100MG TABLET PO SCH (10:18)
[2022-03-27] MEDS: TAMSULOSIN HCL 0.4MG SR CAPSULE PO SCH ×2 (10:18→17:37)
[2022-03-27] MEDS: FERROUS SULFATE 325MG TABLET PO SCH ×3 (10:19→17:38)
[2022-03-27] MEDS: ASPIRIN 81MG TABLET PO SCH (10:19)
[2022-03-27] MEDS: METOPROLOL TARTRATE 50MG TABLET PO SCH ×2 (10:19→21:16)
[2022-03-27] MEDS: LACTULOSE 20G/30ML UDC PO SCH ×2 (10:19→17:37)
[2022-03-27] MEDS: ASCORBIC ACID 500 MG TABLET PO SCH (10:19)
[2022-03-27] MEDS: LIDOCAINE 5% PATCH TOP SCH (10:21)
[2022-03-27] MEDS ORDERED: POTASSIUM CHLORIDE 20MEQ/PACKET PO NR (14:00)
[2022-03-27] MEDS: ERGOCALCIFEROL 50000UNITS CAPSULE PO SCH (17:37)
[2022-03-27] MEDS: IPRATROPIUM/ALBUTEROL 0.5-3(2.5)MG/3ML NEB HHN SCH (19:50)
[2022-03-27 20:00] VITALS: BP 134/59
[2022-03-27] MEDS: ATORVASTATIN CALCIUM 20MG TABLET PO SCH (21:14)
[2022-03-28] MEDS: DEXT 5%/0.45% NACL 1000ML 1,000 ML IV SCH (03:35)
[2022-03-28] MEDS: DILTIAZEM HCL 30MG TABLET PO SCH ×4 (06:00→17:55)
[2022-03-28 08:00] VITALS: BP 126/77
[2022-03-28] MEDS: IPRATROPIUM/ALBUTEROL 0.5-3(2.5)MG/3ML NEB HHN SCH ×2 (08:07→20:04)
[2022-03-28] MEDS: LACTULOSE 20G/30ML UDC PO SCH ×2 (09:00→17:53)
[2022-03-28] MEDS: TAMSULOSIN HCL 0.4MG SR CAPSULE PO SCH ×2 (09:03→17:54)
[2022-03-28] MEDS: ASCORBIC ACID 500 MG TABLET PO SCH (09:04)
[2022-03-28] MEDS: FOLIC ACID 1MG TABLET PO SCH (09:04)
[2022-03-28] MEDS: ASPIRIN 81MG TABLET PO SCH (09:04)
[2022-03-28] MEDS: MULTIVITAMINS,THER W-MINERALS TABLET PO SCH (09:04)
[2022-03-28] MEDS: FERROUS SULFATE 325MG TABLET PO SCH ×3 (09:04→17:53)
[2022-03-28] MEDS: METOPROLOL TARTRATE 50MG TABLET PO SCH ×2 (09:04→21:03)
[2022-03-28] MEDS: THIAMINE HCL 100MG TABLET PO SCH (09:04)
[2022-03-28] MEDS: FINASTERIDE 5MG TABLET PO SCH (09:04)
[2022-03-28] MEDS: ENOXAPARIN 60MG/0.6ML SYR SUBCUT SCH ×2 (09:05→21:04)
[2022-03-28] MEDS: DICLOFENAC SODIUM 1% GEL 50GM TOP SCH ×4 (09:06→21:05)
[2022-03-28] MEDS: LIDOCAINE 5% PATCH TOP SCH (09:06)
[2022-03-28 20:00] VITALS: BP 119/66
[2022-03-28] MEDS: ATORVASTATIN CALCIUM 20MG TABLET PO SCH (21:03)
[2022-03-28] MEDS: ZOLPIDEM TARTRATE 5MG TABLET PO PRN (22:59)
[2022-03-29] MEDS: DILTIAZEM HCL 30MG TABLET PO SCH ×4 (00:09→18:12)
[2022-03-29] MEDS: IPRATROPIUM/ALBUTEROL 0.5-3(2.5)MG/3ML NEB HHN SCH ×2 (07:49→19:55)
[2022-03-29 08:00] VITALS: BP 107/56
[2022-03-29] MEDS ORDERED: FUROSEMIDE 20MG/2ML VIAL IVP NR (08:15)
[2022-03-29] MEDS: ASCORBIC ACID 500 MG TABLET PO SCH (08:57)
[2022-03-29] MEDS: FERROUS SULFATE 325MG TABLET PO SCH ×3 (08:57→18:13)
[2022-03-29] MEDS: FOLIC ACID 1MG TABLET PO SCH (08:57)
[2022-03-29] MEDS: MULTIVITAMINS,THER W-MINERALS TABLET PO SCH (08:58)
[2022-03-29] MEDS: TAMSULOSIN HCL 0.4MG SR CAPSULE PO SCH ×2 (08:58→18:13)
[2022-03-29] MEDS: ASPIRIN 81MG TABLET PO SCH (08:58)
[2022-03-29] MEDS: THIAMINE HCL 100MG TABLET PO SCH (08:58)
[2022-03-29] MEDS: ENOXAPARIN 60MG/0.6ML SYR SUBCUT SCH ×2 (08:59→21:16)
[2022-03-29] MEDS: LACTULOSE 20G/30ML UDC PO SCH ×4 (08:59→21:15)
[2022-03-29] MEDS: METOPROLOL TARTRATE 50MG TABLET PO SCH ×2 (08:59→21:00)
[2022-03-29] MEDS: DICLOFENAC SODIUM 1% GEL 50GM TOP SCH ×4 (09:00→21:17)
[2022-03-29] MEDS: LIDOCAINE 5% PATCH TOP SCH (09:01)
[2022-03-29] MEDS: FINASTERIDE 5MG TABLET PO SCH (09:05)
[2022-03-29 09:17] LABS: EOSINOPHILS % 3.4 % (0.0-5.0); HEMATOCRIT. 37.1 % (42.0-52.0); HEMOGLOBIN. 12.3 g/dL (14.0-18.0); LYMPHOCYTES % 38.8 % (20.0-50.0); MEAN CORPUSCULAR HEMOGLOBIN 29.1 pg (28.0-32.0); MEAN CORPUSCULAR VOLUME 87.7 fL (80.0-94.0); MEAN PLATELET VOLUME 8.2 fl (7.4-10.4); NEUTROPHILS % 52.8 % (40.0-76.0); PLATELET 326 x1000/uL (130-400); RED BLOOD CELL COUNT 4.23 mill/uL (4.7-6.1); RED CELL DISTRIBUTION WIDTH 13.9 % (11.6-14.6)
[2022-03-29 09:26] LABS: CHLORIDE 108 mEq/L (98-107)
[2022-03-29 20:00] VITALS: BP 104/56
[2022-03-29] MEDS: ATORVASTATIN CALCIUM 20MG TABLET PO SCH (21:15)
[2022-03-29] MEDS: ZOLPIDEM TARTRATE 5MG TABLET PO PRN (21:15)
[2022-03-30] MEDS: DILTIAZEM HCL 30MG TABLET PO SCH ×5 (06:00→23:40)
[2022-03-30 08:00] VITALS: BP 119/67
[2022-03-30] MEDS: DICLOFENAC SODIUM 1% GEL 50GM TOP SCH ×4 (09:00→21:26)
[2022-03-30] MEDS: LIDOCAINE 5% PATCH TOP SCH (09:00)
[2022-03-30] MEDS: IPRATROPIUM/ALBUTEROL 0.5-3(2.5)MG/3ML NEB HHN SCH ×2 (09:10→19:33)
[2022-03-30] MEDS: ACETAMINOPHEN 325MG TABLET PO PRN (09:54)
[2022-03-30] MEDS: ASPIRIN 81MG TABLET PO SCH (09:55)
[2022-03-30] MEDS: METOPROLOL TARTRATE 50MG TABLET PO SCH ×3 (09:55→21:25)
[2022-03-30] MEDS: FOLIC ACID 1MG TABLET PO SCH (09:55)
[2022-03-30] MEDS: THIAMINE HCL 100MG TABLET PO SCH (09:55)
[2022-03-30] MEDS: ASCORBIC ACID 500 MG TABLET PO SCH (09:55)
[2022-03-30] MEDS: TAMSULOSIN HCL 0.4MG SR CAPSULE PO SCH ×2 (09:55→18:06)
[2022-03-30] MEDS: FERROUS SULFATE 325MG TABLET PO SCH ×3 (09:55→18:05)
[2022-03-30] MEDS: MULTIVITAMINS,THER W-MINERALS TABLET PO SCH (09:56)
[2022-03-30] MEDS: LACTULOSE 20G/30ML UDC PO SCH ×4 (09:56→18:04)
[2022-03-30] MEDS: FINASTERIDE 5MG TABLET PO SCH (09:56)
[2022-03-30] MEDS: ENOXAPARIN 60MG/0.6ML SYR SUBCUT SCH ×2 (09:57→21:25)
[2022-03-30] MEDS ORDERED: DILTIAZEM HCL 30MG TABLET PO NR (10:30)
[2022-03-30] MEDS: SODIUM CHLORIDE 0.45% 1,000 ML IV SCH (13:23)
[2022-03-30 20:00] VITALS: BP 115/62
[2022-03-30] MEDS: ATORVASTATIN CALCIUM 20MG TABLET PO SCH (21:25)
[2022-03-31] MEDS: SODIUM CHLORIDE 0.45% 1,000 ML IV SCH ×2 (02:43→15:40)
[2022-03-31] MEDS: DILTIAZEM HCL 30MG TABLET PO SCH ×3 (05:18→17:31)
[2022-03-31] MEDS: METOPROLOL TARTRATE 50MG TABLET PO SCH ×3 (05:18→22:38)
[2022-03-31 06:50] LABS: EOSINOPHILS % 6.5 % (0.0-5.0); HEMATOCRIT. 35.5 % (42.0-52.0); LYMPHOCYTES % 35.8 % (20.0-50.0); MEAN CORPUSCULAR HEMOGLOBIN 29.8 pg (28.0-32.0); MEAN CORPUSCULAR VOLUME 87.8 fL (80.0-94.0); MEAN PLATELET VOLUME 8.2 fl (7.4-10.4); MONOCYTES % 6.5 % (2.0-8.0); NEUTROPHILS % 50.2 % (40.0-76.0); PLATELET 295 x1000/uL (130-400); RED BLOOD CELL COUNT 4.04 mill/uL (4.7-6.1); RED CELL DISTRIBUTION WIDTH 14.1 % (11.6-14.6)
[2022-03-31 06:53] LABS: CHLORIDE 106 mEq/L (98-107)
[2022-03-31] MEDS: IPRATROPIUM/ALBUTEROL 0.5-3(2.5)MG/3ML NEB HHN SCH ×2 (07:25→21:07)
[2022-03-31 08:00] VITALS: BP 107/59
[2022-03-31] MEDS: TAMSULOSIN HCL 0.4MG SR CAPSULE PO SCH ×2 (09:00→17:30)
[2022-03-31] MEDS: DICLOFENAC SODIUM 1% GEL 50GM TOP SCH ×4 (09:00→21:00)
[2022-03-31] MEDS: LACTULOSE 20G/30ML UDC PO SCH ×2 (09:00→17:00)
[2022-03-31] MEDS: LIDOCAINE 5% PATCH TOP SCH (09:00)
[2022-03-31] MEDS: ASPIRIN 81MG TABLET PO SCH (09:05)
[2022-03-31] MEDS: ASCORBIC ACID 500 MG TABLET PO SCH (09:05)
[2022-03-31] MEDS: MULTIVITAMINS,THER W-MINERALS TABLET PO SCH (09:05)
[2022-03-31] MEDS: FOLIC ACID 1MG TABLET PO SCH (09:05)
[2022-03-31] MEDS: FERROUS SULFATE 325MG TABLET PO SCH ×3 (09:05→17:30)
[2022-03-31] MEDS: FINASTERIDE 5MG TABLET PO SCH (09:07)
[2022-03-31] MEDS: THIAMINE HCL 100MG TABLET PO SCH (09:08)
[2022-03-31] MEDS: ENOXAPARIN 60MG/0.6ML SYR SUBCUT SCH ×2 (09:09→22:37)
[2022-03-31 20:00] VITALS: BP 105/57
[2022-03-31] MEDS: ATORVASTATIN CALCIUM 20MG TABLET PO SCH (22:36)
[2022-04-01] MEDS: DILTIAZEM HCL 30MG TABLET PO SCH ×4 (00:25→23:23)
[2022-04-01] MEDS: METOPROLOL TARTRATE 50MG TABLET PO SCH ×3 (06:54→21:03)
[2022-04-01 08:00] VITALS: BP_SYST 98; BP_DIAS 54; BP_DIAS 55
[2022-04-01] MEDS: DICLOFENAC SODIUM 1% GEL 50GM TOP SCH ×4 (09:00→21:03)
[2022-04-01] MEDS: ENOXAPARIN 60MG/0.6ML SYR SUBCUT SCH ×2 (10:24→21:02)
[2022-04-01] MEDS: MULTIVITAMINS,THER W-MINERALS TABLET PO SCH (10:24)
[2022-04-01] MEDS: ASCORBIC ACID 500 MG TABLET PO SCH (10:25)
[2022-04-01] MEDS: LACTULOSE 20G/30ML UDC PO SCH ×2 (10:25→17:00)
[2022-04-01] MEDS: TAMSULOSIN HCL 0.4MG SR CAPSULE PO SCH ×2 (10:25→17:45)
[2022-04-01] MEDS: ASPIRIN 81MG TABLET PO SCH (10:25)
[2022-04-01] MEDS: FERROUS SULFATE 325MG TABLET PO SCH ×3 (10:26→17:45)
[2022-04-01] MEDS: LIDOCAINE 5% PATCH TOP SCH (10:26)
[2022-04-01] MEDS: FOLIC ACID 1MG TABLET PO SCH (10:26)
[2022-04-01] MEDS: FINASTERIDE 5MG TABLET PO SCH (10:26)
[2022-04-01] MEDS: THIAMINE HCL 100MG TABLET PO SCH (10:26)
[2022-04-01] MEDS: IPRATROPIUM/ALBUTEROL 0.5-3(2.5)MG/3ML NEB HHN SCH ×2 (11:00→20:07)
[2022-04-01 20:00] VITALS: BP 116/56
[2022-04-01] MEDS: ATORVASTATIN CALCIUM 20MG TABLET PO SCH (21:03)
[2022-04-01] MEDS: ZOLPIDEM TARTRATE 5MG TABLET PO PRN (23:23)
[2022-04-02] MEDS: DILTIAZEM HCL 30MG TABLET PO SCH ×3 (05:26→18:14)
[2022-04-02] MEDS: METOPROLOL TARTRATE 50MG TABLET PO SCH ×3 (05:27→21:35)
[2022-04-02] MEDS: IPRATROPIUM/ALBUTEROL 0.5-3(2.5)MG/3ML NEB HHN SCH ×2 (07:20→20:06)
[2022-04-02] MEDS: SODIUM CHLORIDE 0.45% 1,000 ML IV SCH ×2 (07:40→20:36)
[2022-04-02 08:00] VITALS: BP 116/56
[2022-04-02] MEDS: FERROUS SULFATE 325MG TABLET PO SCH ×3 (09:00→18:13)
[2022-04-02] MEDS: DICLOFENAC SODIUM 1% GEL 50GM TOP SCH ×4 (09:00→20:36)
[2022-04-02] MEDS: LIDOCAINE 5% PATCH TOP SCH (09:00)
[2022-04-02] MEDS: THIAMINE HCL 100MG TABLET PO SCH (09:00)
[2022-04-02] MEDS: LACTULOSE 20G/30ML UDC PO SCH ×3 (09:00→18:05)
[2022-04-02] MEDS: ASCORBIC ACID 500 MG TABLET PO SCH (09:09)
[2022-04-02] MEDS: FOLIC ACID 1MG TABLET PO SCH (09:09)
[2022-04-02] MEDS: MULTIVITAMINS,THER W-MINERALS TABLET PO SCH (09:09)
[2022-04-02] MEDS: ASPIRIN 81MG TABLET PO SCH (09:09)
[2022-04-02] MEDS: FINASTERIDE 5MG TABLET PO SCH (09:09)
[2022-04-02] MEDS: TAMSULOSIN HCL 0.4MG SR CAPSULE PO SCH ×2 (09:11→18:12)
[2022-04-02 20:12] VITALS: BP 138/72
[2022-04-02] MEDS: ATORVASTATIN CALCIUM 20MG TABLET PO SCH (20:35)
[2022-04-02] MEDS: ENOXAPARIN 80MG/0.8ML SYR SUBCUT SCH (20:35)
[2022-04-03] MEDS: METOPROLOL TARTRATE 50MG TABLET PO SCH ×2 (06:00→13:41)
[2022-04-03] MEDS: DILTIAZEM HCL 30MG TABLET PO SCH ×4 (06:07→22:01)
[2022-04-03 08:00] VITALS: BP 130/61
[2022-04-03] MEDS: IPRATROPIUM/ALBUTEROL 0.5-3(2.5)MG/3ML NEB HHN SCH ×2 (08:41→21:53)
[2022-04-03] MEDS: MULTIVITAMINS,THER W-MINERALS TABLET PO SCH ×2 (09:00→09:09)
[2022-04-03] MEDS: LIDOCAINE 5% PATCH TOP SCH (09:00)
[2022-04-03] MEDS: TAMSULOSIN HCL 0.4MG SR CAPSULE PO SCH ×2 (09:00→09:09)
[2022-04-03] MEDS: ASPIRIN 81MG TABLET PO SCH ×2 (09:00→09:09)
[2022-04-03] MEDS: ENOXAPARIN 80MG/0.8ML SYR SUBCUT SCH ×2 (09:00→22:02)
[2022-04-03] MEDS: FOLIC ACID 1MG TABLET PO SCH ×2 (09:00→09:08)
[2022-04-03] MEDS: ERGOCALCIFEROL 50000UNITS CAPSULE PO SCH (09:00)
[2022-04-03] MEDS: THIAMINE HCL 100MG TABLET PO SCH ×2 (09:00→09:08)
[2022-04-03] MEDS: ASCORBIC ACID 500 MG TABLET PO SCH ×2 (09:00→09:08)
[2022-04-03] MEDS: DICLOFENAC SODIUM 1% GEL 50GM TOP SCH ×4 (09:00→21:00)
[2022-04-03] MEDS: FERROUS SULFATE 325MG TABLET PO SCH ×4 (09:00→16:35)
[2022-04-03] MEDS: FINASTERIDE 5MG TABLET PO SCH ×2 (09:00→09:09)
[2022-04-03] MEDS: SODIUM CHLORIDE 0.45% 1,000 ML IV SCH ×2 (10:20→23:40)
[2022-04-03] MEDS: LACTULOSE 20G/30ML UDC PO SCH (16:45)
[2022-04-03 17:02] LABS: BG BASE EXCESS 1.9 mmol/L (-2.0-2.0); BG CARBOXYHEMOGLOBIN 0.4 % (0.5-1.5); BG DEOXYHEMOGLOBIN 7.2 % (0.0-5.0); BG FRACTION INSPIRED OXYGEN 21; BG HCO3 ACT 25.4 mmol/L (22.0-26.0); BG METHEMOGLOBIN 0.1 % (0.0-1.5); BG OXYGEN SATURATION 92.8 % (92.0-98.5); BG OXYHEMOGLOBIN 92.3 % (94.0-97.0); BG PCO2 36.3 mmHg (35.0-45.0); BG PH 7.463 (7.350-7.450); BG PO2 65.9 mmHg (75.0-100.0); BG SAMPLE SITE RIGHT BRACHIAL; BG VENT MODE ROOM AIR
[2022-04-03 20:06] VITALS: BP 143/77
[2022-04-03] MEDS: ATORVASTATIN CALCIUM 20MG TABLET PO SCH (22:00)
[2022-04-03 22:30] VITALS: BP 126/72
[2022-04-04] MEDS: DILTIAZEM HCL 30MG TABLET PO SCH ×3 (06:00→20:47)
[2022-04-04 06:17] LABS: CHLORIDE 108 mEq/L (98-107)
[2022-04-04 06:21] LABS: BASOPHILS % 0.7 % (0.0-2.0); EOSINOPHILS % 6.3 % (0.0-5.0); HEMATOCRIT. 37.7 % (42.0-52.0); HEMOGLOBIN. 12.5 g/dL (14.0-18.0); LYMPHOCYTES % 41.6 % (20.0-50.0); MEAN CORPUSCULAR HEMOGLOBIN 29.3 pg (28.0-32.0); MEAN CORPUSCULAR VOLUME 88.2 fL (80.0-94.0); MEAN PLATELET VOLUME 8.6 fl (7.4-10.4); NEUTROPHILS % 44.4 % (40.0-76.0); PLATELET 287 x1000/uL (130-400); RED BLOOD CELL COUNT 4.27 mill/uL (4.7-6.1); RED CELL DISTRIBUTION WIDTH 14.2 % (11.6-14.6)
[2022-04-04 08:00] VITALS: BP 117/76
[2022-04-04] MEDS: DICLOFENAC SODIUM 1% GEL 50GM TOP SCH ×4 (09:00→20:45)
[2022-04-04] MEDS: FERROUS SULFATE 325MG TABLET PO SCH ×3 (09:00→18:24)
[2022-04-04] MEDS: LIDOCAINE 5% PATCH TOP SCH (09:00)
[2022-04-04] MEDS: FOLIC ACID 1MG TABLET PO SCH (09:16)
[2022-04-04] MEDS: ASPIRIN 81MG TABLET PO SCH (09:16)
[2022-04-04] MEDS: LACTULOSE 20G/30ML UDC PO SCH ×2 (09:16→18:24)
[2022-04-04] MEDS: THIAMINE HCL 100MG TABLET PO SCH (09:16)
[2022-04-04] MEDS: ASCORBIC ACID 500 MG TABLET PO SCH (09:16)
[2022-04-04] MEDS: MULTIVITAMINS,THER W-MINERALS TABLET PO SCH (09:16)
[2022-04-04] MEDS: ENOXAPARIN 80MG/0.8ML SYR SUBCUT SCH ×2 (09:23→20:48)
[2022-04-04] MEDS: IPRATROPIUM/ALBUTEROL 0.5-3(2.5)MG/3ML NEB HHN SCH ×2 (10:50→21:20)
[2022-04-04] MEDS: SODIUM CHLORIDE 0.45% 1,000 ML IV SCH (13:00)
[2022-04-04 19:59] VITALS: BP 134/66
[2022-04-04] MEDS: ATORVASTATIN CALCIUM 20MG TABLET PO SCH (20:46)
[2022-04-05] MEDS: SODIUM CHLORIDE 0.45% 1,000 ML IV SCH (02:20)
[2022-04-05] MEDS: DILTIAZEM HCL 30MG TABLET PO SCH (05:26)
[2022-04-05 08:00] VITALS: BP 120/60
[2022-04-05] MEDS: FOLIC ACID 1MG TABLET PO SCH (08:00)
[2022-04-05] MEDS: THIAMINE HCL 100MG TABLET PO SCH (08:00)
[2022-04-05] MEDS: ASPIRIN 81MG TABLET PO SCH (08:00)
[2022-04-05] MEDS: FERROUS SULFATE 325MG TABLET PO SCH (08:01)
[2022-04-05] MEDS: MULTIVITAMINS,THER W-MINERALS TABLET PO SCH (08:01)
[2022-04-05] MEDS: ASCORBIC ACID 500 MG TABLET PO SCH (08:01)
[2022-04-05] MEDS: IPRATROPIUM/ALBUTEROL 0.5-3(2.5)MG/3ML NEB HHN SCH (08:04)
[2022-04-05] MEDS ORDERED: DILT30TA38 PO (08:06)
[2022-04-05] MEDS ORDERED: LACT10SO7 PO (08:06)
[2022-04-05] MEDS ORDERED: FERR-63 PO (08:06)
[2022-04-05] MEDS ORDERED: FOLI-43 PO (08:06)
[2022-04-05] MEDS ORDERED: THIA100T72 PO (08:06)
[2022-04-05] MEDS ORDERED: ASPI-1160 PO (08:06)
[2022-04-05] MEDS ORDERED: ATOR20TA PO (08:06)
[2022-04-05] MEDS ORDERED: MULT-1146 MT (08:06)
[2022-04-05] MEDS: ENOXAPARIN 80MG/0.8ML SYR SUBCUT SCH (08:08)
[2022-04-05] MEDS: LIDOCAINE 5% PATCH TOP SCH (08:08)
[2022-04-05] MEDS: DICLOFENAC SODIUM 1% GEL 50GM TOP SCH (08:08)
[2022-04-05] MEDS: LACTULOSE 20G/30ML UDC PO SCH (09:00)
[2022-04-05 10:48] VITALS: BP 120/60
[2022-04-05] MEDS ORDERED: DILTIAZEM HCL 30MG TABLET PO SCH (12:00)
== END 2022-04-05 14:40 | disposition home health service (06) | DRG 91 ==
PROVIDERS: ADMIT Physical Medicine & Rehabilitation Spinal Cord Injury Medicine; ATTEND Internal Medicine
DX: G92.8 Other toxic encephalopathy (principal); A41.9 Sepsis, unspecified organism; J18.9 Pneumonia, unspecified organism; E43 Unspecified severe protein-calorie malnutrition; G82.50 Quadriplegia, unspecified; J96.01 Acute respiratory failure with hypoxia; F10.239 Alcohol dependence with withdrawal, unspecified; I82.432 Acute embolism and thrombosis of left popliteal vein; N17.9 Acute kidney failure, unspecified; R29.6 Repeated falls; E87.6 Hypokalemia; R53.81 Other malaise; E53.8 Deficiency of other specified B group vitamins; Y90.9 Presence of alcohol in blood, level not specified; K72.90 Hepatic failure, unspecified without coma; D64.9 Anemia, unspecified; E55.9 Vitamin D deficiency, unspecified; E61.1 Iron deficiency; E78.5 Hyperlipidemia, unspecified; E86.0 Dehydration; I08.1 Rheumatic disorders of both mitral and tricuspid valves; I10 Essential (primary) hypertension; I27.21 Secondary pulmonary arterial hypertension; I95.1 Orthostatic hypotension; M47.26 Other spondylosis with radiculopathy, lumbar region; M47.812 Spondylosis without myelopathy or radiculopathy, cervical region; M48.02 Spinal stenosis, cervical region; M48.061 Spinal stenosis, lumbar region without neurogenic claudication; M50.221 Other cervical disc displacement at C4-C5 level; M51.16 Intervertebral disc disorders with radiculopathy, lumbar region; N40.0 Benign prostatic hyperplasia without lower urinary tract symptoms; Z79.899 Other long term (current) drug therapy; Z82.1 Family history of blindness and visual loss; Z86.73 Personal history of transient ischemic attack (TIA), and cerebral infarction without residual deficits; Z91.81 History of falling; Z68.26 Body mass index [BMI] 26.0-26.9, adult
CPT/HCPCS: 36415; 36600; 70551; 71045; 72141; 72146; 72148; 73110; 73130; 74230; 80048; 80053; 81003; 82140; 82306; 82375; 82728; 82805; 82962; 83540; 83550; 84134; 84484; 85025; 85379; 92523; 92610; 92611; 93005; 93970; 94618; 94640; 97110; 97112; 97116; 97150; 97162; 97166; 97530; 97535; 97542; J0696; J1650; J1940; J7060

== ENCOUNTER 2022-05-13 14:20 | Inpatient (IN) | payer MEDICARE, OTHER, MEDICAID ==
[~2022-05-13] VITALS: Ht 165.1 cm; Wt 59.5 kg
[~2022-05-13 14:20] MED LIST changes: +ASPI-1160 PO; -ATOR10TA69 PO; +ATOR20TA PO; +DILT30TA38 PO; -DOCU100T PO; +FERR-63 PO; +FOLI-43 PO; +LACT10SO7 PO; -LOSA25TA26 MT; -MECL-159 PO; -METO-385 PO; +MULT-1146 MT; +THIA100T72 PO
[2022-05-13 16:56] LABS: BASOPHILS % 0.4 % (0.0-2.0); EOSINOPHILS % 0.1 % (0.0-5.0); HEMOGLOBIN. 14.8 g/dL (14.0-18.0); LYMPHOCYTES % 7.7 % (20.0-50.0); MEAN CORPUSCULAR HEMOGLOBIN 29.7 pg (28.0-32.0); MEAN CORPUSCULAR VOLUME 86.5 fL (80.0-94.0); MEAN PLATELET VOLUME 7.6 fl (7.4-10.4); MONOCYTES % 4.6 % (2.0-8.0); NEUTROPHILS % 87.2 % (40.0-76.0); PLATELET 235 x1000/uL (130-400); RED BLOOD CELL COUNT 4.97 mill/uL (4.7-6.1); RED CELL DISTRIBUTION WIDTH 14.5 % (11.6-14.6)
[2022-05-13 17:06] LABS: CHLORIDE 104 mEq/L (98-107)
[2022-05-13 17:07] LABS: INR 1.2; PROTHROMBIN TIME 12.7 sec (9.6-11.0)
[2022-05-13 17:13] LABS: ETHANOL BLOOD < 10 mg/dL
[2022-05-13 17:50] LABS: CLARITY URINE CLOUDY (CLEAR); COLOR URINE YELLOW (YELLOW); KETONES URINE NEGATIVE (NEGATIVE); LEUKOCYTE ESTERASE URINE 2+ (NEGATIVE); NITRITE URINE POSITIVE (NEGATIVE); OCCULT BLOOD URINE 3+ (NEGATIVE); PROTEIN URINE 1+ (NEGATIVE); SPECIFIC GRAVITY URINE 1.012 (1.005-1.030); UROBILINOGEN URINE 0.2 E.U./dL (0.2-1.0)
[2022-05-13 17:53] LABS: *AMPHETAMINES SCREEN URINE NEGATIVE (NEGATIVE); *BARBITURATES SCREEN URINE NEGATIVE (NEGATIVE); *BENZODIAZEPINES SCREEN URINE NEGATIVE (NEGATIVE); *COCAINE SCREEN URINE NEGATIVE (NEGATIVE); CANNABINOID URINE SCREEN NEGATIVE (NEGATIVE); METHADONE URINE SCREEN NEGATIVE (NEGATIVE); OPIATES URINE SCREEN NEGATIVE (NEGATIVE); PHENCYCLIDINE URINE SCREEN NEGATIVE (NEGATIVE)
[2022-05-13] MEDS ORDERED: CEFTRIAXONE 2 G PREMIX 50 ML IV ONE (18:45)
[2022-05-13] MEDS ORDERED: SODIUM CHLORIDE 0.9% 1,000 ML IV NR (18:45)
[2022-05-13] MEDS ORDERED: CEFTRIAXONE 2 G in DEXTROSE 5% WATER 50 ML IV NR (19:00)
[2022-05-14] VITALS (8 sets, daily range): BP systolic 102–128; BP diastolic 49–82
[2022-05-14] MEDS ORDERED: LORAZEPAM 2MG/ML CPJ IV PRN (01:00)
[2022-05-14 05:51] LABS: BASOPHILS % 0.1 % (0.0-2.0); EOSINOPHILS % 0.5 % (0.0-5.0); HEMATOCRIT. 42.3 % (42.0-52.0); HEMOGLOBIN. 14.1 g/dL (14.0-18.0); LYMPHOCYTES % 13.2 % (20.0-50.0); MEAN CORPUSCULAR HEMOGLOBIN 29.1 pg (28.0-32.0); MEAN CORPUSCULAR VOLUME 87.2 fL (80.0-94.0); MEAN PLATELET VOLUME 8.5 fl (7.4-10.4); MONOCYTES % 6.7 % (2.0-8.0); NEUTROPHILS % 79.5 % (40.0-76.0); PLATELET 203 x1000/uL (130-400); RED BLOOD CELL COUNT 4.85 mill/uL (4.7-6.1)
[2022-05-14 05:54] LABS: CHLORIDE 105 mEq/L (98-107)
[2022-05-14] MEDS ORDERED: ONDANSETRON HCL 4MG/2ML INJ IV PRN (10:30)
[2022-05-14] MEDS ORDERED: DOCUSATE SODIUM 100MG CAPSULE PO PRN (10:30)
[2022-05-14] MEDS ORDERED: IPRATROPIUM/ALBUTEROL 0.5-3(2.5)MG/3ML NEB HHN PRN (10:30)
[2022-05-14] MEDS ORDERED: CLONIDINE 0.1MG TABLET PO PRN (10:30)
[2022-05-14] MEDS ORDERED: ACETAMINOPHEN 325MG TABLET PO PRN ×2 (10:30)
[2022-05-14] MEDS: MULTIVITAMINS,THER W-MINERALS TABLET PO SCH (13:50)
[2022-05-14] MEDS: LACTULOSE 20G/30ML UDC PO SCH ×2 (13:50→17:00)
[2022-05-14] MEDS: THIAMINE HCL 100MG TABLET PO SCH (13:50)
[2022-05-14] MEDS: FOLIC ACID 1MG TABLET PO SCH (13:50)
[2022-05-14] MEDS: ASPIRIN 81MG TABLET PO SCH (13:50)
[2022-05-14] MEDS: FINASTERIDE 5MG TABLET PO SCH (13:51)
[2022-05-14] MEDS: FERROUS SULFATE 325MG TABLET PO SCH ×2 (13:52→18:22)
[2022-05-14] MEDS: DILTIAZEM HCL 30MG TABLET PO SCH ×2 (13:52→22:00)
[2022-05-14] MEDS: CEFTRIAXONE 1,000 MG in DEXTROSE 5% WATER 50 ML IV SCH (22:38)
[2022-05-14] MEDS: ATORVASTATIN CALCIUM 20MG TABLET PO SCH (22:38)
[2022-05-14] MEDS: TAMSULOSIN HCL 0.4MG SR CAPSULE PO SCH (22:39)
[2022-05-15] VITALS: BP 122/51
[2022-05-15 04:00] VITALS: BP 109/71
[2022-05-15] MEDS: DILTIAZEM HCL 30MG TABLET PO SCH ×3 (06:00→22:00)
[2022-05-15 06:07] LABS: BASOPHILS % 0.7 % (0.0-2.0); HEMOGLOBIN. 13.8 g/dL (14.0-18.0); LYMPHOCYTES % 19.7 % (20.0-50.0); MEAN CORPUSCULAR HEMOGLOBIN 29.1 pg (28.0-32.0); MEAN CORPUSCULAR VOLUME 86.3 fL (80.0-94.0); MEAN PLATELET VOLUME 8.6 fl (7.4-10.4); MONOCYTES % 5.3 % (2.0-8.0); NEUTROPHILS % 72.3 % (40.0-76.0); PLATELET 197 x1000/uL (130-400); RED BLOOD CELL COUNT 4.75 mill/uL (4.7-6.1); RED CELL DISTRIBUTION WIDTH 14.8 % (11.6-14.6)
[2022-05-15] MEDS: HYDROCODONE/ACETAMINOPHEN 5/325MG TABLET PO PRN ×3 (06:12→23:48)
[2022-05-15 06:28] LABS: CHLORIDE 104 mEq/L (98-107)
[2022-05-15 08:00] VITALS: BP 99/63
[2022-05-15] MEDS: LACTULOSE 20G/30ML UDC PO SCH ×2 (09:00→17:00)
[2022-05-15] MEDS: FINASTERIDE 5MG TABLET PO SCH (10:22)
[2022-05-15] MEDS: MULTIVITAMINS,THER W-MINERALS TABLET PO SCH (10:22)
[2022-05-15] MEDS: ASPIRIN 81MG TABLET PO SCH (10:22)
[2022-05-15] MEDS: FERROUS SULFATE 325MG TABLET PO SCH ×3 (10:22→18:32)
[2022-05-15] MEDS: FOLIC ACID 1MG TABLET PO SCH (10:22)
[2022-05-15] MEDS: THIAMINE HCL 100MG TABLET PO SCH (10:22)
[2022-05-15 12:00] VITALS: BP 116/60
[2022-05-15 16:00] VITALS: BP 128/52
[2022-05-15] MEDS ORDERED: NALOXONE HCL 0.4MG/ML VIAL IV PRN (18:00)
[2022-05-15] MEDS: CEFTRIAXONE 1,000 MG in DEXTROSE 5% WATER 50 ML IV SCH (19:53)
[2022-05-15] MEDS: LORAZEPAM 0.5MG TABLET PO PRN ×2 (19:53→23:48)
[2022-05-15 20:00] VITALS: BP 122/58
[2022-05-15] MEDS: ATORVASTATIN CALCIUM 20MG TABLET PO SCH (21:40)
[2022-05-15] MEDS: TAMSULOSIN HCL 0.4MG SR CAPSULE PO SCH (21:40)
[2022-05-16] VITALS (7 sets, daily range): BP systolic 108–132; BP diastolic 60–71
[2022-05-16] MEDS: LORAZEPAM 0.5MG TABLET PO PRN (03:19)
[2022-05-16] MEDS: HYDROCODONE/ACETAMINOPHEN 5/325MG TABLET PO PRN (03:19)
[2022-05-16] MEDS: FERROUS SULFATE 325MG TABLET PO SCH ×3 (06:36→17:52)
[2022-05-16] MEDS: DILTIAZEM HCL 30MG TABLET PO SCH ×3 (06:36→22:22)
[2022-05-16 06:37] LABS: BASOPHILS % 0.9 % (0.0-2.0); EOSINOPHILS % 4.4 % (0.0-5.0); HEMATOCRIT. 39.8 % (42.0-52.0); HEMOGLOBIN. 13.4 g/dL (14.0-18.0); LYMPHOCYTES % 30.6 % (20.0-50.0); MEAN CORPUSCULAR HEMOGLOBIN 29.1 pg (28.0-32.0); MEAN CORPUSCULAR VOLUME 86.8 fL (80.0-94.0); MEAN PLATELET VOLUME 8.7 fl (7.4-10.4); MONOCYTES % 5.3 % (2.0-8.0); NEUTROPHILS % 58.8 % (40.0-76.0); PLATELET 201 x1000/uL (130-400); RED BLOOD CELL COUNT 4.59 mill/uL (4.7-6.1); RED CELL DISTRIBUTION WIDTH 14.8 % (11.6-14.6)
[2022-05-16 07:36] LABS: CHLORIDE 104 mEq/L (98-107)
[2022-05-16] MEDS: LACTULOSE 20G/30ML UDC PO SCH ×2 (09:00→17:00)
[2022-05-16] MEDS: THIAMINE HCL 100MG TABLET PO SCH (09:40)
[2022-05-16] MEDS: MULTIVITAMINS,THER W-MINERALS TABLET PO SCH (09:40)
[2022-05-16] MEDS: FINASTERIDE 5MG TABLET PO SCH (09:40)
[2022-05-16] MEDS: ASPIRIN 81MG TABLET PO SCH (09:40)
[2022-05-16] MEDS: FOLIC ACID 1MG TABLET PO SCH ×2 (09:40→13:22)
[2022-05-16] MEDS: CEFAZOLIN 1000MG PREMIX 50 ML IV SCH ×3 (10:28→22:29)
[2022-05-16] MEDS: ATORVASTATIN CALCIUM 20MG TABLET PO SCH (20:24)
[2022-05-16] MEDS: TAMSULOSIN HCL 0.4MG SR CAPSULE PO SCH (20:47)
[2022-05-17] VITALS: BP 130/60
[2022-05-17 05:14] VITALS: BP 142/78
[2022-05-17] MEDS: DILTIAZEM HCL 30MG TABLET PO SCH ×3 (05:39→21:04)
[2022-05-17] MEDS: CEFAZOLIN 1000MG PREMIX 50 ML IV SCH ×3 (05:52→21:05)
[2022-05-17 08:00] VITALS: BP 116/69
[2022-05-17] MEDS: LACTULOSE 20G/30ML UDC PO SCH ×2 (09:00→17:00)
[2022-05-17] MEDS: FOLIC ACID 1MG TABLET PO SCH (09:33)
[2022-05-17] MEDS: THIAMINE HCL 100MG TABLET PO SCH (09:33)
[2022-05-17] MEDS: ASPIRIN 81MG TABLET PO SCH (09:33)
[2022-05-17] MEDS: MULTIVITAMINS,THER W-MINERALS TABLET PO SCH (09:33)
[2022-05-17] MEDS: FERROUS SULFATE 325MG TABLET PO SCH ×3 (09:33→18:35)
[2022-05-17] MEDS: FINASTERIDE 5MG TABLET PO SCH (09:34)
[2022-05-17 12:00] VITALS: BP 115/64
[2022-05-17] MEDS: HYDROCODONE/ACETAMINOPHEN 5/325MG TABLET PO PRN (13:45)
[2022-05-17 16:00] VITALS: BP 136/63
[2022-05-17 20:00] VITALS: BP 120/73
[2022-05-17] MEDS: ATORVASTATIN CALCIUM 20MG TABLET PO SCH (21:03)
[2022-05-17] MEDS: TAMSULOSIN HCL 0.4MG SR CAPSULE PO SCH (21:05)
[2022-05-18] VITALS: BP 137/61
[2022-05-18 04:00] VITALS: BP 156/86
[2022-05-18] MEDS: DILTIAZEM HCL 30MG TABLET PO SCH ×3 (06:00→21:12)
[2022-05-18] MEDS: CEFAZOLIN 1000MG PREMIX 50 ML IV SCH ×3 (06:00→21:13)
[2022-05-18 08:44] VITALS: BP 117/66
[2022-05-18] MEDS: FOLIC ACID 1MG TABLET PO SCH (09:14)
[2022-05-18] MEDS: FERROUS SULFATE 325MG TABLET PO SCH ×3 (09:14→18:31)
[2022-05-18] MEDS: MULTIVITAMINS,THER W-MINERALS TABLET PO SCH (09:14)
[2022-05-18] MEDS: LACTULOSE 20G/30ML UDC PO SCH ×2 (09:14→17:00)
[2022-05-18] MEDS: THIAMINE HCL 100MG TABLET PO SCH (09:15)
[2022-05-18] MEDS: ASPIRIN 81MG TABLET PO SCH (09:15)
[2022-05-18] MEDS: FINASTERIDE 5MG TABLET PO SCH (09:22)
[2022-05-18 12:00] VITALS: BP 138/79
[2022-05-18] MEDS ORDERED: TAMS-11 PO ×2 (15:33)
[2022-05-18] MEDS ORDERED: FINA5TAB11 PO ×2 (15:33)
[2022-05-18] MEDS ORDERED: CEPH500C2 MT ×3 (15:50→19:33)
[2022-05-18 16:04] VITALS: BP 134/83
[2022-05-18] MEDS ORDERED: TAMS-11 MT (19:33)
[2022-05-18] MEDS ORDERED: FINA1TAB18 MT (19:33)
[2022-05-18 20:00] VITALS: BP 143/115
[2022-05-18] MEDS: ATORVASTATIN CALCIUM 20MG TABLET PO SCH (21:10)
[2022-05-18] MEDS: HYDROCODONE/ACETAMINOPHEN 5/325MG TABLET PO PRN (21:12)
[2022-05-18] MEDS: TAMSULOSIN HCL 0.4MG SR CAPSULE PO SCH (22:10)
[2022-05-19] VITALS: BP 148/90
[2022-05-19 04:00] VITALS: BP 153/78
[2022-05-19] MEDS: CEFAZOLIN 1000MG PREMIX 50 ML IV SCH (06:10)
[2022-05-19] MEDS: DILTIAZEM HCL 30MG TABLET PO SCH (06:10)
[2022-05-19 08:00] VITALS: BP 123/63
[2022-05-19] MEDS: FOLIC ACID 1MG TABLET PO SCH (08:40)
[2022-05-19] MEDS: THIAMINE HCL 100MG TABLET PO SCH (08:40)
[2022-05-19] MEDS: ASPIRIN 81MG TABLET PO SCH (08:40)
[2022-05-19] MEDS: FINASTERIDE 5MG TABLET PO SCH (08:40)
[2022-05-19] MEDS: MULTIVITAMINS,THER W-MINERALS TABLET PO SCH (08:40)
[2022-05-19] MEDS: FERROUS SULFATE 325MG TABLET PO SCH (08:41)
[2022-05-19 12:30] VITALS: BP 111/69
[2022-05-19 12:52] VITALS: BP 111/69
== END 2022-05-19 14:58 | disposition home health service (06) | DRG 871 ==
LOC: ER 14:20 → 6WST 19:27 → ENRESERV 22:53
PROVIDERS: ADMIT Internal Medicine; ATTEND Internal Medicine
DX: A41.9 Sepsis, unspecified organism (principal); G92.8 Other toxic encephalopathy; N17.9 Acute kidney failure, unspecified; N39.0 Urinary tract infection, site not specified; F10.239 Alcohol dependence with withdrawal, unspecified; T83.091A Other mechanical complication of indwelling urethral catheter, initial encounter; R33.9 Retention of urine, unspecified; R29.6 Repeated falls; I07.1 Rheumatic tricuspid insufficiency; I35.1 Nonrheumatic aortic (valve) insufficiency; I34.0 Nonrheumatic mitral (valve) insufficiency; G89.29 Other chronic pain; R26.9 Unspecified abnormalities of gait and mobility; M48.02 Spinal stenosis, cervical region; M48.061 Spinal stenosis, lumbar region without neurogenic claudication; R74.01 Elevation of levels of liver transaminase levels; I10 Essential (primary) hypertension; Z82.1 Family history of blindness and visual loss; Z83.3 Family history of diabetes mellitus; Z82.49 Family history of ischemic heart disease and other diseases of the circulatory system; Z86.73 Personal history of transient ischemic attack (TIA), and cerebral infarction without residual deficits; Z91.81 History of falling; Y84.6 Urinary catheterization as the cause of abnormal reaction of the patient, or of later complication, without mention of misadventure at the time of the procedure; Y92.89 Other specified places as the place of occurrence of the external cause; W19.XXXA Unspecified fall, initial encounter; Y93.89 Activity, other specified; Y99.8 Other external cause status
CPT/HCPCS: 36415; 76770; 80048; 80053; 80061; 80305; 80320; 81003; 82140; 82746; 83036; 83605; 84145; 85025; 87077; 87186; 87426; 92523; 93005; 97110; 97116; 97162; 97166; 97530; 97535; 99291; J0690; J0696; J2060; J2405; J7060; G0480

== ENCOUNTER 2023-05-30 12:06 | Emergency (ER) | payer MEDICARE, MEDICAID ==
[~2023-05-30] VITALS: Ht 160 cm; Wt 59.0 kg
[~2023-05-30 12:06] MED LIST changes: +CEPH500C2 MT; +DILT30TA37 PO; -DILT30TA38 PO; +FINA1TAB18 MT; -LACT10SO7 PO; +TAMS-11 MT
[2023-05-30 12:09] VITALS: O2SAT 95
[2023-05-30 13:11] LABS: BASOPHILS % 0.8 % (0.0-2.0); EOSINOPHILS % 9.6 % (0.0-5.0); HEMATOCRIT. 39.6 % (42.0-52.0); HEMOGLOBIN. 13.3 g/dL (14.0-18.0); LYMPHOCYTES % 50.7 % (20.0-50.0); MEAN CORPUSCULAR HEMOGLOBIN 28.8 pg (28.0-32.0); MEAN CORPUSCULAR HGB CONC 33.5 g/dL (31.0-37.0); MEAN PLATELET VOLUME 8.1 fl (7.4-10.4); MONOCYTES % 6.1 % (2.0-8.0); NEUTROPHILS % 32.8 % (40.0-76.0); PLATELET 190 x1000/uL (130-400); RED BLOOD CELL COUNT 4.61 mill/uL (4.7-6.1); RED CELL DISTRIBUTION WIDTH 14.4 % (11.6-14.6); WHITE BLOOD COUNT 5.8 x1000/uL (4.5-11.0)
[2023-05-30 13:15] LABS: POTASSIUM 4.2 mEq/L (3.5-5.1)
[2023-05-30 13:22] LABS: CALCIUM 8.8 mg/dL (8.5-10.1); CREATININE 1.2 mg/dL (0.6-1.3)
[2023-05-30] MEDS ORDERED: CEPHALEXIN 250MG CAPSULE PO ONE (14:00)
[2023-05-30 15:06] VITALS: TEMP 98.4
[2023-05-30] MEDS ORDERED: HYDR-4001 MT (16:25)
[2023-05-30] MEDS ORDERED: CEPH500C2 MT (16:25)
[2023-05-30] MEDS ORDERED: HYDROCODONE/ACETAMINOPHEN 5/325MG TABLET PO ONE (16:30)
[2023-05-30 18:40] VITALS: BP 141/64; PULSE 78; RESP 18
[2023-05-31] MEDS ORDERED: ACET-2708 MT (02:33)
== END 2023-05-30 18:41 | disposition home or self-care (01) ==
LOC: ER 12:23 → CANBEDREQ 17:54 → ER 18:41
DX: T83.018A Breakdown (mechanical) of other urinary catheter, initial encounter (principal); I11.9 Hypertensive heart disease without heart failure; Z85.46 Personal history of malignant neoplasm of prostate; X58.XXXA Exposure to other specified factors, initial encounter; Y93.89 Activity, other specified; Y92.89 Other specified places as the place of occurrence of the external cause; Y99.8 Other external cause status
CPT/HCPCS: 36415; 51702; 80048; 85025; 99284

== ENCOUNTER 2023-05-30 23:09 | Emergency (ER) | payer MEDICARE, MEDICAID ==
[~2023-05-30] VITALS: Ht 162.6 cm; Wt 60.0 kg
[~2023-05-30 23:09] MED LIST changes: +HYDR-4001 MT
[2023-05-30] MEDS ORDERED: OXYBUTYNIN CHLORIDE 5MG TABLET PO ONE (23:15)
[2023-05-30] MEDS ORDERED: ACETAMINOPHEN 325MG TABLET PO ONE (23:15)
[2023-05-30 23:23] VITALS: O2SAT 99
[2023-05-30 23:43] LABS: HEMATOCRIT 39.3 % (42.0-52.0); HEMOGLOBIN 13.2 g/dL (14.0-18.0)
[2023-05-30 23:52] LABS: POTASSIUM 4.3 mEq/L (3.5-5.1)
[2023-05-30 23:58] LABS: CALCIUM 8.7 mg/dL (8.5-10.1); CREATININE 1.4 mg/dL (0.6-1.3)
[2023-05-31] MEDS ORDERED: ACET-2708 MT (02:33)
[2023-05-31 08:48] VITALS: BP 119/80; PULSE 78; RESP 16; TEMP 98.2
== END 2023-05-31 08:49 | disposition home or self-care (01) ==
LOC: ER 23:09
DX: T83.511A Infection and inflammatory reaction due to indwelling urethral catheter, initial encounter (principal); I11.9 Hypertensive heart disease without heart failure; R31.9 Hematuria, unspecified; N28.9 Disorder of kidney and ureter, unspecified; X58.XXXA Exposure to other specified factors, initial encounter; Y93.89 Activity, other specified; Y92.89 Other specified places as the place of occurrence of the external cause; Y99.8 Other external cause status
CPT/HCPCS: 36415; 51702; 80048; 85014; 85018; 99285